=== PATIENT | female | born 1945 | race Caucasian/White ===

== ENCOUNTER 2020-03-04 00:39 | Outpatient (CLI) | payer OTHER, SELFPAY ==
--- NOTE | 2020-03-04 09:11 | DI.US_ITS ---
APPROVED REPORT EXAM: Comprehensive 2D, Doppler, and color-flow Echocardiogram Patient Location: Out-Patient Pressroom Foreman: Imelda Mane RDCS (AE) Indications: Murmur Conclusion Left Ventricle : The left ventricle is normal size. The left ventricular systolic function is normal. The left ventricular ejection fraction is within the normal range. There is normal left ventricular wall thickness. There is normal LV segmental wall motion. LVEF is 58%. There is grade 2 diastolic dys function with evidence of increased left atrial pressure. Right Ventricle : The right ventricle is normal size. The right ventricular systolic function is norm al. The RVSP is 39.8mmHg. Atria : Left atrium is mildly dilated. The right atrium size is normal. Aortic Valve : Aortic valve is calcified. Mild aortic stenosis. Peak aortic valve gradient is 27mmHg. Highest mean aortic valve gradient is 16mmHg. Calculated ELTON by the continuity equation is 1.37cm2. Trace aortic regurgitation. Mitral Valve : Moderate mitral annular calcification. No evidence of mitral valve stenosis. Tricuspid Valve : The tricuspid valve is normal in structure. There is no tricuspid valve stenosis. M ild tricuspid regurgitation. Great Vessels : The aortic root is normal in size. Ascending aorta is not well visualized. IVC is nor mal in size and collapses >50% with inspiration. There is no prior echocardiogram available for comparison. Wall motion Left Ventricle The left ventricle is normal size. The left ventricular systolic function is normal. The left ventric ular ejection fraction is within the normal range. There is normal left ventricular wall thickness. T here is normal LV segmental wall motion. There is grade 2 diastolic dysfunction with evidence of incr eased left atrial pressure. There is no ventricular septal defect visualized. LVEF is 58%. Right Ventricle The right ventricle is normal size. The right ventricular systolic function is normal. The RVSP is 39 .8mmHg. Atria Left atrium is mildly dilated. The right atrium size is normal. The interatrial septum is intact with no evidence for an atrial septal defect. Aortic Valve Aortic valve is calcified. Mild aortic stenosis. Peak aortic valve gradient is 27.7mmHg. Highest mean aortic valve gradient is 16.2mmHg. Calculated ELTON by the continuity equation is 1.37cm2. Trace aorti c regurgitation. Mitral Valve Moderate mitral annular calcification. No evidence of mitral valve stenosis. Mild mitral regurgitatio n. Tricuspid Valve The tricuspid valve is normal in structure. There is no tricuspid valve stenosis. Mild tricuspid regu rgitation. Pulmonic Valve The pulmonary valve is normal in structure. There is no pulmonic valvular stenosis. There is no pulmo rebel valvular regurgitation. Great Vessels The aortic root is normal in size. Ascending aorta is not well visualized. IVC is normal in size and collapses >50% with inspiration. Pericardium There is no pericardial effusion. 2D Dimensions IVSD d PLAX 0.96 cm F: 0.6-1.0 LV Vol A2C d MOD 63.2 mL LVPW d PLAX 0.96 cm F: 0.6 - 1.0 LV Vol A4C d MOD 60.5 mL LVID d PLAX 4.36 cm F: 3.8 - 5.2 LA vol/ BSA A2C s A-L 35.4 mL/m2 Ao Root d 2.37 cm F: 2.7 - 3.3 LA vol/ BSA A4C s A-L 32.3 mL/m2 RA Area A4C 11.60 cm2 LA Vol/ BSA Biplane s A-L 34.1 mL/m2 RA Vol/ BSA A4C s A-L 16.8 mL/m2 LA Area A4C s MOD 18.90 cm2 LVEF (Marsh's) 56.59 % F: 54 - 74 LA Area A2C s MOD 19.66 cm2 LV Volume 50.90 mL F: 46 - 106 LV EF A4C MOD 58.5 % LV Volume Index 32.62 mL/m2 F: 29 - 61 LV EF A2C MOD 58.3 % LV Vol Biplane MOD 62.0 mL LV EF Biplane MOD 56.6 % SV 35.11 mL SV Index 22.50 mL/m2 M-Mode TAPSE 2.45 cm (M/F) >1.7 LV Diastology MV E' medial 0.059 (>0.07 m/s) E/A Ratio 1.1 LV E/e MED 19.35 (<14) MV E Vmax 1.15 (0.4-1.3 m/s) MV E' lateral 0.082 (>0.1 m/s) MV A Vmax 1.05 (0.4-1.3 m/s) LV E/e LAT 14.00 (<14) MV E/A Ratio 1.09 MV E/E' medial 19.37 MV E/E' lateral 14.00 Aortic Valve LVOT Area 2.75 cm2 AoV Area Vmax 1.37 cm2 LVOT Vmax 1.31 m/s AoV Area/ BSA (Vmax) 0.88 cm2/m2 LVOT Mean Krishna. 1.02 m/s ELTON Mean Krishna. 1.46 cm2 LVOT Peak Grad 6.9 mmHg ELTON Mean Krishna. Index 0.93 cm2/m2 LVOT Mean Grad 4.5 mmHg LVOT VTI 0.369 m LVOT Diam s 1.85 cm AoV Vmax 2.63 m/s Velocity Ratio 0.49 AoV Mean Krishna. 1.93 m/s AoV Peak Grad 27.7 mmHg LVOT SV 101.49 mL AoV Mean Grad 16.2 mmHg AoV VTI 0.665 m AoV Area VTI 1.53 cm2 AoV Area/ BSA (VTI) 0.98 cm/m2 Mitral Valve MV DT 247 (160-240 msec) MV PHT 72 msec MV Area PHT 3.08 cm2 Pulmonary Valve PV Vmax 0.84 (0.5-1.5 m/s) RVOT Peak Gr. 1.65 mmHg PV Peak Grad 2.8 mmHg RVOT Mean Gr. 1.20 mmHg PV Mean Grad 2.0 mmHg RVOT VTI 0.168 m PV VTI 0.234 m RVOT Vmax 0.64 m/s Tricuspid Valve TR Peak Grad 36.7 mmHg TR Vmax 3.03 m/s RA Pressure 3.00 mmHg RVSP (TR) 39.8 mmHg
== END 2020-03-04 00:59 ==
PROVIDERS: PCP Nurse Practitioner Adult Health; Visit Provider Nurse Practitioner Adult Health
DX: R01.1 Cardiac murmur, unspecified (principal); I35.2 Nonrheumatic aortic (valve) stenosis with insufficiency; I10 Essential (primary) hypertension; I50.30 Unspecified diastolic (congestive) heart failure
CPT/HCPCS: 93306

== ENCOUNTER 2020-03-04 01:20 | Outpatient (CLI) | payer OTHER, SELFPAY ==
[2020-03-04 09:54] LABS: ALT 26 U/L (14-59); AST 20 U/L (15-37); Albumin 4.3 g/dL (3.4-5.0); Alkaline Phosphatase 55 U/L (46-116); Anion Gap 7.6 mmol/L (3-11); BUN 19 mg/dL (7-18); Bilirubin, Total 0.7 mg/dL (0.2-1.0); CO2 30.4 mmol/L (21.0-32.0); CREATININE 0.95 mg/dL (0.55-1.02); Calcium 9.7 mg/dL (8.5-10.1); Calculated LDL 41 mg/dL (<100); Chloride 106 mmol/L (98-107); Cholesterol 131 mg/dL (<200); Estimated GFR 57.82 (mL/min/1.73m2); Glucose 107 mg/dL (74-106); HDL Cholesterol 47 mg/dL (40-60); Potassium 3.8 mmol/L (3.5-5.1); Sodium 144 mmol/L (136-145); Total Protein 6.8 g/dL (6.4-8.2); Triglyceride 215 mg/dL (<150)
== END 2020-03-04 01:40 ==
PROVIDERS: PCP Nurse Practitioner Adult Health; Visit Provider Nurse Practitioner Adult Health
DX: E78.5 Hyperlipidemia, unspecified (principal); I10 Essential (primary) hypertension; N18.3 Chronic kidney disease, stage 3 (moderate)
CPT/HCPCS: 36415; 80053; 80061

== ENCOUNTER 2020-05-06 11:33 | Emergency (ER) | payer OTHER, SELFPAY ==
[2020-05-06] VITALS (31 sets, daily range): BP systolic 83–148; BP diastolic 38–111; PULSE 56–66; RESP 15–20; TEMP 36.5; O2SAT 92–97
--- NOTE | 2020-05-06 11:30 | RT.EKG_ITS ---
APPROVED REPORT Exam: Resting ECG Patient Location: E HR:62 bpm ECG Measurements Heart Rate 62 AXIS TN 159 P 9 QRSd 93 QRS 36 QT 450 T 48 QTc 457 Conclusion Sinus rhythm...normal P axis, V-rate 60- 99 Inferior infarct, old...Q >35mS, II III aVF
[2020-05-06] MEDS: Normal Saline 1,000 ML 125 ML IV (12:00)
[2020-05-06 12:12] LABS: Abs Immature Grans 0.04 10^3/uL (0.0-0.06); Absolute Basophil Count 0.05 10^3/uL (0.0-0.2); Absolute Eosinophil Count 0.37 10^3/uL (0.0-0.7); Absolute Lymphocyte Count 2.11 10^3/uL (1.2-3.4); Absolute Monocyte Count 0.86 10^3/uL (0.1-0.8); Absolute Neutrophil Count 5.24 10^3/uL (1.2-6.7); Basophils % 0.6; Eosinophils % 4.3; HCT 39.9 % (36.0-46.0); HGB 13.8 g/dL (11.2-15.7); Immature Grans % 0.5; Lymphocytes % 24.3; MCH 31.5 pg (27.0-33.0); MCHC 34.6 % (32.0-36.0); MCV 91.1 fL (80-95); MPV 10.8 fL (8.0-11.0); Monocytes % 9.9; Neutrophils % 60.4; Nucleated RBC 0 %; Platelet Count 197 10^3/uL (130-400); RBC 4.38 10^6/uL (3.93-5.22); RDW 11.9 % (11.7-14.6); RDW-SD 39.4 fL; WBC 8.67 10^3/uL (4.4-10.8)
--- NOTE | 2020-05-06 12:22 | DI.CT_ITS ---
EXAM: CT HEAD WO CLINICAL HISTORY: Right-sided weakness, dizziness, history of CVA TECHNIQUE: COMPARISON: No exams were available for comparison FINDINGS: Note is made of hyperostosis frontalis interna. 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 There is no evidence of acute intracranial hemorrhage, mass effect, or midline shift. The orbital and temporal bone structures appear intact. Visualized paranasal sinuses mastoid air cells appear c lear. IMPRESSION: No evidence of acute intracranial process. RADIATION DOSE DELIVERED: 681.86mGy.cm Total DLP
[2020-05-06 12:26] LABS: Prothrombin Time 10.5 sec (9.3-11.0)
[2020-05-06 12:30] LABS: ALT 25 U/L (14-59); AST 18 U/L (15-37); Albumin 4.2 g/dL (3.4-5.0); Alkaline Phosphatase 60 U/L (46-116); BUN 15 mg/dL (7-18); Bilirubin, Total 0.9 mg/dL (0.2-1.0); CREATININE 0.79 mg/dL (0.55-1.02); Calcium 9.6 mg/dL (8.5-10.1); Chloride 108 mmol/L (98-107); Glucose 150 mg/dL (74-106); Magnesium 1.7 mg/dL (1.8-2.4); Potassium 3.6 mmol/L (3.5-5.1); Sodium 142 mmol/L (136-145); Total Protein 6.9 g/dL (6.4-8.2)
[2020-05-06 12:33] LABS: Troponin I < 0.05 ng/mL (<0.06)
--- NOTE | 2020-05-06 12:45 | DI.RAD_ITS ---
EXAM: XR CHEST 2V PA LATERAL CLINICAL HISTORY: Right-sided weakness, dizzy TECHNIQUE: 2D digital imaging was performed. COMPARISON: No exams were available for comparison FINDINGS: The heart is not enlarged. The lungs are clear and well expanded. No pleural effusion seen. Mediastin al contours appear intact. IMPRESSION: Normal chest RADIATION DOSE DELIVERED: Total DLP
--- NOTE | 2020-05-06 12:48 | W.ED.GENAD ---
Discharge Plan Disposition Patient Disposition: HOME Condition: Stable Discharge Details Chief Complaint: CVA/TIA Clinical Impression: UTI (urinary tract infection), Complaints of weakness of lower extremity Primary Care Provider: Brina Faustin ED Provider: Umang Arredondo Home Meds and New Rx's Prescriptions: New cephalexin [Keflex] 500 mg capsule 500 mg PO BID Qty: 14 RF: 0 Continued atenolol 50 mg tablet 50 mg PO QHS Qty: 90 RF: 3 losartan 50 mg tablet 50 mg PO DAILY Qty: 90 RF: 3 famotidine 20 mg tablet 20 mg PO DAILY RF: 0 amlodipine 10 mg tablet 10 mg PO .daily at bedtime Qty: 90 RF: 3 atorvastatin 40 mg tablet 40 mg PO QPM Qty: 90 RF: 3 amitriptyline 10 mg tablet 10 mg PO QHS Qty: 90 RF: 3 aspirin [Adult Aspirin Regimen] 81 mg tablet,delayed release (DR/EC) 81 mg PO DAILY RF: 0 hydrochlorothiazide 12.5 mg capsule 12.5 mg PO DAILY RF: 0 coenzyme Q10 10 mg capsule 10 mg PO DAILY RF: 0 Calmme Tablet PO RF: 0 montelukast 10 mg tablet 10 mg PO DAILY Qty: 90 RF: 3 fluoxetine [Prozac] 40 mg capsule 40 mg PO DAILY Qty: 90 RF: 3 sumatriptan succinate [Imitrex] 50 mg tablet 50 mg PO DAILY PRN (Reason: migraine headache) Qty: 18 RF: 4 clopidogrel 75 mg tablet 75 mg PO DAILY Qty: 90 RF: 3 Discharge Instructions Instructions: Urinary Tract Infection in Women (ED), Weakness (ED) Additional Instructions: Work-up in the ER reveals urinary tract infection. Take Keflex as directed. Plenty fluids avoid dehydration. At this time your CT imaging did not reveal acute stroke as we discussed MRI is more sensitive. At this time we discussed potential for admission, declined. I believe this to be perfectly reasonable however please watch for new or worsening symptoms and return to the ER for any concerns. I strongly recommend reaching out your primary care provider later today or tomorrow for prompt outpatient reevaluation. Outpatient MRI very well may be indicated if symptoms persist Discharge Data Discharge Date/Time-TO BE ENTERED AT DEPARTURE: 05/06/20 16:16 Medical Decision Making This is a 74-year-old female with a significant past medical history, currently taking Plavix, history of CVA. Question of worsening speech per the sending triage nurse but both patient and family do not feel as though this is accurate. Patient is simply not felt well for a couple of days and reports increased right leg weakness and some paresthesias. She reports that that weakness has resolved and the paresthesias are only occasional. She denies any bowel or bladder changes, paresthesias to the groin, or back pain. Given her age and multiple abilities I do believe initiating a cardiac work-up is reasonable, will obtain a head CT once our code black has completed. Luckily our code black only lasted for approximately 45 minutes after arrival, CT obtained. Outside of her baseline known weakness on her right side status post CVA, I do not appreciate any acute neurologic deficit. She appears well, nontoxic. Heart rate in the 60s, she is afebrile. Work-up reveals a white count of 8.67 hemoglobin 13.8 hematocrit 39.9 platelet count 197. INR 1.0. Sodium 142 potassium 3.6 creatinine 0.79 with a GFR greater than 60. Glucose 150. Calcium 9.6 mag 1.7. LFTs unremarkable. Troponin less than 0.05. Urinalysis reveals trace ketones, positive nitrates, moderate leuk esterase with greater than [address] chest x-ray unremarkable CT read by radiology as negative for acute intracranial process. Discussed initial findings with patient. There is no she does have a urinary tract infection which can certainly make her not feel well, will treat with Keflex. She did receive 1 L IV fluid while she was here. Patient is currently feeling well and comfortable awaiting repeat troponin at 3-hour timeframe. During her ER observation she was able to ambulate steadily using assistive device. Repeat troponin remained less than 0.05. Discussed repeat troponin with patient. We discussed our options. We discussed that although her CT was negative, given her age, comorbidities, etc., MRI could be used for further evaluation. Unfortunately nonemergent MRI is difficult to get from the ER setting that we could talk about in observation admission if you prefer to help expedite the MRI and she was uncomfortable going home. Patient would prefer to be discharged home. I do believe this to be a reasonable plan. I was able to speak with the patient's daughter, Bonita, regarding her work-up here in the ER, findings of a urinary tract infection, and her mother's desire to be discharged. She to was comfortable with this plan and will be sure to be available for her mother if she may need anything over the next couple of days. She was encouraged to return to the ER for new or worsening symptoms, otherwise contact her primary care provider tomorrow for prompt outpatient reevaluation. Medical Records Medical records reviewed: Yes I reviewed the patient's medical records. Imaging Data Radiologic Study: Attestation: I personally reviewed and interpreted this imaging study as follows: Imaging: CT Scan Radiologist's impression: No evidence of acute intracranial process Radiologic Study #2: Attestation: I personally reviewed and interpreted this imaging study as follows: Imaging: X-Ray Radiologist's impression: Chest x-ray unremarkable Lab Data Lab results reviewed: Yes I reviewed the patient's lab results. Lab results narrative: 05/06/20 12:48 Urine - Reflex from Ua Urine Culture - Pending Laboratory Tests Range/Units 05/06/20 05/06/20 05/06/20 12:00 12:00 12:00 WBC (4.4-10.8) 10^3/uL 8.67 RBC (3.93-5.22) 10^6/uL 4.38 Hgb (11.2-15.7) g/dL 13.8 Hct (36.0-46.0) % 39.9 MCV (80-95) fL 91.1 MCH (27.0-33.0) pg 31.5 MCHC (32.0-36.0) % 34.6 RDW (11.7-14.6) % 11.9 Plt Count (130-400) 10^3/uL 197 MPV (8.0-11.0) fL 10.8 Immature Gran % 0.5 Neutrophils % 60.4 Lymphocytes % 24.3 Monocytes % 9.9 Eosinophils % 4.3 Basophils % 0.6 Nucleated RBC % % 0 Absolute Neutrophils (1.2-6.7) 10^3/uL 5.24 Absolute Lymphocytes (1.2-3.4) 10^3/uL 2.11 Absolute Monocytes (0.1-0.8) 10^3/uL 0.86 H Absolute Eosinophils (0.0-0.7) 10^3/uL 0.37 Absolute Basophils (0.0-0.2) 10^3/uL 0.05 PT (9.3-11.0) sec 10.5 INR (0.9-1.1) 1.0 Sodium (136-145) mmol/L 142 Potassium (3.5-5.1) mmol/L 3.6 Chloride (98-107) mmol/L 108 H Carbon Dioxide (21.0-32.0) mmol/L 26.0 Anion Gap (3-11) mmol/L 8.0 BUN (7-18) mg/dL 15 Creatinine (0.55-1.02) mg/dL 0.79 Estimated GFR/1.73 m2 (mL/min/1.73m2) >= 60.00 Glucose (74-106) mg/dL 150 H Calcium (8.5-10.1) mg/dL 9.6 Magnesium (1.8-2.4) mg/dL 1.7 L Total Bilirubin (0.2-1.0) mg/dL 0.9 AST (15-37) U/L 18 ALT (14-59) U/L 25 Alkaline Phosphatase (46-116) U/L 60 Troponin I (<0.06) ng/mL < 0.05 Total Protein (6.4-8.2) g/dL 6.9 Albumin (3.4-5.0) g/dL 4.2 Urine Color (Yellow) Urine Clarity (Clear) Urine pH (5-8) Ur Specific [place] (1.005-1.025) Urine Protein (Negative) mg/dL Urine Ketones (Negative) mg/dL Urine Blood (Negative) Urine Nitrite (Negative) Urine Bilirubin (Negative) Urine Urobilinogen (Up TO 0.2) EU/dL Ur Leukocyte Esterase (Negative) Urine RBC (0-2) HPF Urine WBC (0-5) HPF Ur Epithelial Cells (Negative) HPF Urine Crystals (Negative) HPF Urine Bacteria (Negative) HPF Urine Casts (Negative) LPF Urine Mucus (Negative) Ur Culture Indicated? Urine Glucose (Negative) mg/dL Range/Units 05/06/20 05/06/20 12:48 15:03 WBC (4.4-10.8) 10^3/uL RBC (3.93-5.22) 10^6/uL Hgb (11.2-15.7) g/dL Hct (36.0-46.0) % MCV (80-95) fL MCH (27.0-33.0) pg MCHC (32.0-36.0) % RDW (11.7-14.6) % Plt Count (130-400) 10^3/uL MPV (8.0-11.0) fL Immature Gran % Neutrophils % Lymphocytes % Monocytes % Eosinophils % Basophils % Nucleated RBC % % Absolute Neutrophils (1.2-6.7) 10^3/uL Absolute Lymphocytes (1.2-3.4) 10^3/uL Absolute Monocytes (0.1-0.8) 10^3/uL Absolute Eosinophils (0.0-0.7) 10^3/uL Absolute Basophils (0.0-0.2) 10^3/uL PT (9.3-11.0) sec INR (0.9-1.1) Sodium (136-145) mmol/L Potassium (3.5-5.1) mmol/L Chloride (98-107) mmol/L Carbon Dioxide (21.0-32.0) mmol/L Anion Gap (3-11) mmol/L BUN (7-18) mg/dL Creatinine (0.55-1.02) mg/dL Estimated GFR/1.73 m2 (mL/min/1.73m2) Glucose (74-106) mg/dL Calcium (8.5-10.1) mg/dL Magnesium (1.8-2.4) mg/dL Total Bilirubin (0.2-1.0) mg/dL AST (15-37) U/L ALT (14-59) U/L Alkaline Phosphatase (46-116) U/L Troponin I (<0.06) ng/mL < 0.05 Total Protein (6.4-8.2) g/dL Albumin (3.4-5.0) g/dL Urine Color (Yellow) Yellow Urine Clarity (Clear) Sl cloudy Urine pH (5-8) 7.0 Ur Specific [place] (1.005-1.025) 1.020 Urine Protein (Negative) mg/dL Negative Urine Ketones (Negative) mg/dL Trace H Urine Blood (Negative) Negative Urine Nitrite (Negative) Positive H Urine Bilirubin (Negative) Negative Urine Urobilinogen (Up TO 0.2) EU/dL 0.2 Ur Leukocyte Esterase (Negative) Moderate H Urine RBC (0-2) HPF 10-20 H Urine WBC (0-5) HPF >50 H Ur Epithelial Cells (Negative) HPF Negative Urine Crystals (Negative) HPF Negative Urine Bacteria (Negative) HPF Many Urine Casts (Negative) LPF Negative Urine Mucus (Negative) Negative Ur Culture Indicated? Yes Urine Glucose (Negative) mg/dL Negative ECG Data Attestation: I personally reviewed and interpreted this ECG (s) as follows: Interpretation: EKG reviewed interpreted by Dr. Mills. Please see his official report. Sinus rhythm, ventricular of 62. No STEMI HPI General Date/Time Provider Initiated Documentation: 05/06/20 11:44. Limitations to Documentation: no limitations. Information obtained by: patient and family. HPI Narrative: This is a 74-year-old female with past medical history that includes a cerebral infarct, chronic kidney disease, hypertension, anxiety, mild right-sided deficit status post CVA, hyperlipidemia, IBS, migraines, presenting to the ER today for evaluation. Apparently 2 nights ago she began having some generalized weakness, simply not feeling well, felt as though her right lower extremity had slightly worse weakness than baseline associated with some paresthesias. She initially use the word dizzy but upon further investigation she does not feel ataxic or like the room is spinning, it is more a sensation of just not feeling well and feeling off. Denies any acute numbness or weakness in her face or right upper extremity. Patient tells me that status post her CVA she does have difficulty speaking at times, difficulty with word finding, worse when she talks a lot. Patient reports that this appears to be at baseline and does not believe that this is worse over the past 48 hours. Denies any headache over the past 48 hours, recent illness or trauma. She denies neck pain, chest pain, shortness of breath, abdominal pain, nausea, vomiting, incontinence, change of bowel or bladder function. Patient tells me that she believes that her right leg is back to baseline when speaking about her symptoms 2 nights ago. I was able to speak with the patient's daughter who reports that her mother appears to be at baseline. She feels as though she is speaking normally and does admit that at times she has had difficulty with word finding. She feels as though there is no new neurologic deficit. She felt as though her mother was using her extremities at baseline, ambulating with assistive device as she typically does, did not notice any change in her gait or overall strength. She brought her mother here because of the subjective complaints but she was unable to elicit any change from her baseline. Patient contacted her primary care office today and after speaking with an RN at the office was triaged here. We received a report of a female patient coming in with right sided weakness as well as change in speech. Given this report I clarified with patient and family once again. There is no facial weakness or paralysis. She feels as though her right arm is at baseline status post her CVA. Both patient and family report that her speech is at baseline. Patient does take a baby aspirin daily as well as on Plavix. Given this is a 74-year-old female with a history of CVA, anticoagulated, and triage here for potential change in speech as well as right-sided weakness, I had a very transparent conversation both with patient and family. Unfortunately at this time we are experiencing a code black, our CT machine is expected to be down for approximately 2 hours. After having a thorough conversation using shared decision-making, patient and family are comfortable staying here at our facility understanding that there is CT will likely be delayed. They feel as though she is not having any change in speech, the general feeling of not feeling well along with right leg weakness and/or paresthesias began 2 days ago and they would be well outside any therapeutic window. I do believe this to be a completely reasonable plan but did want to make our limitations known. Related Data Home Medications Medication Instructions Recorded Confirmed aspirin 81 mg tablet,delayed 81 mg PO DAILY 09/14/19 05/06/20 release coenzyme Q10 10 mg capsule 10 mg PO DAILY cap 09/14/19 05/06/20 herbal drugs tab PO 09/14/19 11/19/19 hydrochlorothiazide 12.5 mg capsule 12.5 mg PO DAILY 09/14/19 05/06/20 famotidine 20 mg tablet 20 mg PO DAILY 10/19/19 05/06/20 montelukast 10 mg tablet 10 mg PO DAILY #90 tab 10/25/19 05/06/20 fluoxetine 40 mg capsule 40 mg PO DAILY #90 cap 11/09/19 05/06/20 atenolol 50 mg tablet 50 mg PO QHS #90 tab 11/19/19 05/06/20 losartan 50 mg tablet 50 mg PO DAILY #90 tab 11/19/19 05/06/20 sumatriptan succinate 50 mg tablet 50 mg PO DAILY PRN #18 tab 11/28/19 05/06/20 amlodipine 10 mg tablet 10 mg PO .daily at bedtime #90 tab 02/15/20 05/06/20 amitriptyline 10 mg tablet 10 mg PO QHS #90 tab 03/17/20 05/06/20 atorvastatin 40 mg tablet 40 mg PO QPM #90 tab 03/17/20 05/06/20 clopidogrel 75 mg tablet 75 mg PO DAILY #90 tab 04/22/20 05/06/20 cephalexin [Keflex] 500 mg PO BID #14 cap 05/06/20 Previous Rx's Medication Instructions Recorded montelukast 10 mg tablet 10 mg PO DAILY #90 tab 10/25/19 fluoxetine 40 mg capsule 40 mg PO DAILY #90 cap 11/09/19 atenolol 50 mg tablet 50 mg PO QHS #90 tab 11/19/19 losartan 50 mg tablet 50 mg PO DAILY #90 tab 11/19/19 sumatriptan succinate 50 mg tablet 50 mg PO DAILY PRN #18 tab 11/28/19 amlodipine 10 mg tablet 10 mg PO .daily at bedtime #90 tab 02/15/20 amitriptyline 10 mg tablet 10 mg PO QHS #90 tab 03/17/20 atorvastatin 40 mg tablet 40 mg PO QPM #90 tab 03/17/20 clopidogrel 75 mg tablet 75 mg PO DAILY #90 tab 04/22/20 cephalexin [Keflex] 500 mg PO BID #14 cap 05/06/20 Allergies Allergy/AdvReac Type Severity Reaction Status Date / Time codeine Allergy Verified 05/06/20 11:43 pentazocine [From Talwin] Allergy incoherent Verified 05/06/20 11:43 Sulfa (Sulfonamide Allergy Verified 05/06/20 11:43 Antibiotics) nortriptyline AdvReac Intermediate Elevated BP Verified 05/06/20 11:43 sulfamethoxazole AdvReac Nausea Unverified 05/06/20 11:43 [From Bactrim] trimethoprim [From Bactrim] AdvReac Nausea Unverified 05/06/20 11:43 General Stated Complaint: CVA/TIA JACINDA: 2 Review of Systems Constitutional Constitutional: Denies fatigue, Denies fever(s) and Reports weakness Eyes Eyes: Denies change in vision ENT Ears, Nose, Mouth, and Throat: Denies dizziness and Denies neck pain Cardiovascular Cardiovascular: Denies chest pain and Denies dyspnea Respiratory Respiratory: Denies dyspnea Gastrointestinal Gastrointestinal: Denies abdominal pain, Denies nausea and Denies vomiting Genitourinary Genitourinary: Denies dysuria Musculoskeletal Musculoskeletal: Denies arthralgias, Denies joint swelling, Denies neck pain, Denies numbness, Denies stiffness and Reports tingling Integumentary/Breasts Skin/Breast: Denies rash Neurologic Neurologic: Denies dizziness, Denies numbness, Reports tingling and Reports weakness Endocrine Endocrine: Denies fatigue Hematologic/Lymphatic Hematologic/Lymphatic: Reports easy bruising PFSH Medical History Advanced care planning/counseling discussion (Acute) Cardiac murmur (Chronic) ECHO 02/2020 mild aortic stenosis; repeat ECHO 1 year Cerebral infarction (Chronic) 01/2017 CKD (chronic kidney disease), stage III (Chronic) eGFR ~56 Diverticulitis large intestine w/o perforation or abscess w/o bleeding (Inactive) Do not resuscitate (Chronic) DNR/DNI/DNH (unless comfort needs cannot be met at home); AD completed; COLST completed 11/19/2019 Essential hypertension (Chronic) Generalized anxiety disorder (Acute) Hemiplegia following CVA (cerebrovascular accident) (Chronic) R History of abdominal pain (Acute) NEG HIDA 12/04/2018--no gallbladder disease History of gastric ulcer (Inactive) NSAID related--on Famotidine & avoids NSAIDS (APAP instead) Hyperlipidemia (Acute) Iliotibial band syndrome (Inactive) Impaired gait and mobility (Chronic) s/p CVA; uses Walker Irritable bowel syndrome (Chronic) Imodium PRN Migraine with aura, intractable, without status migrainosus (Chronic) Amitrip 10mg HS stopped migraines immediately (see 03/17/2020 OV note); Imitrex PRN + nightly Nortriptyline effective initially at 10mg with dose increase to 20mg causing elevated BPs so stopped and no worse for migraines Mild intermittent asthma (Acute) Surgical History H/O section (Chronic) 1973, Dr. Christensen H/O: hysterectomy (Chronic) 1983. Dr. Christensen History of appendectomy (Chronic) History of back surgery (Acute) --with fusion History of carpal tunnel release (Acute) S/P excision of lipoma (Acute 09/30/10) right hand Status post excision of lipoma (Acute 09/30/10) Fibrolipoma cervical neck mass, Dr. Pelayo Family History Father Prostate cancer Diabetes Heart disease Hypertension Mother Heart disease Hypertension Social History Smoking/Tobacco Use Status: Never Alcohol Intake: current Alcohol Intake frequency: a few times a month Drug use: Never Substance use type: does not use Adopted: No Caregiver/Support person: No Foster care: No Household members: family Housing: house Number of Children: 2 number of grandchildren: 3 Communication Needs: Corrective Lenses Education Level: vocational Do you need help understanding health information?: Rarely current occupation: Retired Sexually active: No Do you think of yourself as: straight/heterosexual Current gender identity: female Other: 2 daughter; Gege Navarro, agent (daughter who lives nearby) What type of physical activity do you participate in: none Amalia/Nondenominational: Confucianism Special amalia needs: No Seatbelt use: always Working smoke detector in home: Yes Fire extinguisher in home: Yes Carbon monox detector in home: Yes Do you feel safe at home: Yes Do you feel safe in your relationship?: Yes Exam Const General: cooperative, healthy appearing, comfortable and no acute distress Orientation: alert, awake and oriented x3 HENMT Head: normal to inspection, normocephalic and atraumatic Ears: external ears normal, TM's normal bilaterally and EAC's normal General nose exam: external nose normal Face and sinus: normal facial exam Mouth: moist mucous membranes Throat: posterior oropharynx normal Eyes General: appearance normal, both eyes and all related structures Alignment and Position: alignment normal Periorbital: periorbital findings normal Eyelids: eyelids normal Conjunctivae: conjunctivae normal Sclera: sclerae normal Cornea: corneas normal Pupils: PERRL EOM: EOM intact bilaterally Direct ophthalmoscopy: normal light reflex Neck Neck: normal visual inspection, full ROM, no meningeal signs, trachea midline, supple and nontender Resp Effort & Inspection: normal respiratory effort and able to speak in complete sentences Auscultation: clear to auscultation bilaterally Cardio Rate: regular rate Rhythm: regular rhythm GI Inspection: normal to inspection Palpation: soft, no pulsatile masses and nontender Auscultation: normal bowel sounds Back/Spine/Pelvis Back: No back tenderness Skin General skin exam: no rashes or lesions noted Neuro General: patient alert, patient awake, patient oriented x3, moves all extremities and no focal motor deficits Cranial Nerves: CN's II-XI intact bilaterally Cognition: normal cognition Speech: other (Has appropriate conversation, occasionally with word finding difficulties) Gait: gait assisted Motor: no pronator drift, no movement abnormalities noted, no fasciculations, no tremors and other (Right extremities 4 out of 5, left extremities 5 out of 5 strength) Sensory Exam: no sensory deficits noted Coordination: [id number] test normal, [id number] test normal, Does not sway with eyes open and rapid alternating movement UE normal Extrem Right upper extremity: normal to inspection, full ROM and normal capillary refill Left upper extremity: normal to inspection, full ROM and normal capillary refill Right lower extremity: normal to inspection, full ROM and normal capillary refill Left lower extremity: normal to inspection, full ROM and normal capillary refill Other: Patient able to feel palpation to the right leg. Occasionally she reports that it feels slightly different across the anterior and lateral aspect of her right thigh. Psych Appearance: grossly normal Mental Status: mental status grossly normal Course Vital Signs Vital signs: Vital Signs Temperature 36.5 C 05/06/20 11:38 Pulse 66 05/06/20 11:38 Respiratory Rate 05/06/20 11:38 Blood Pressure 148/66 H 05/06/20 11:38 Pulse Oximetry 95 05/06/20 11:38 Temperature 36.5 C 05/06/20 11:38 Temperature Source Skin 05/06/20 11:38 Pulse 62 05/06/20 11:46 Pulse 61 05/06/20 12:10 Respiratory Rate 05/06/20 11:38 Respiratory Effort Non-Labored 05/06/20 12:31 Blood Pressure 116/57 L 05/06/20 11:46 Blood Pressure Mean 70 05/06/20 11:46 Blood Pressure Position Sitting 05/06/20 11:38 Pulse Oximetry 95 05/06/20 12:10 Oxygen Delivery Method Room Air 05/06/20 11:38 Oxygen Flow Rate 0 05/06/20 11:38 Lab/Test Results Lab/Test Results: Laboratory Tests Range/Units 05/06/20 05/06/20 05/06/20 12:00 12:00 12:00 WBC (4.4-10.8) 10^3/uL 8.67 RBC (3.93-5.22) 10^6/uL 4.38 Hgb (11.2-15.7) g/dL 13.8 Hct (36.0-46.0) % 39.9 MCV (80-95) fL 91.1 MCH (27.0-33.0) pg 31.5 MCHC (32.0-36.0) % 34.6 RDW (11.7-14.6) % 11.9 Plt Count (130-400) 10^3/uL 197 MPV (8.0-11.0) fL 10.8 Immature Gran % 0.5 Neutrophils % 60.4 Lymphocytes % 24.3 Monocytes % 9.9 Eosinophils % 4.3 Basophils % 0.6 Nucleated RBC % % 0 Absolute Neutrophils (1.2-6.7) 10^3/uL 5.24 Absolute Lymphocytes (1.2-3.4) 10^3/uL 2.11 Absolute Monocytes (0.1-0.8) 10^3/uL 0.86 H Absolute Eosinophils (0.0-0.7) 10^3/uL 0.37 Absolute Basophils (0.0-0.2) 10^3/uL 0.05 PT (9.3-11.0) sec 10.5 INR (0.9-1.1) 1.0 Sodium (136-145) mmol/L 142 Potassium (3.5-5.1) mmol/L 3.6 Chloride (98-107) mmol/L 108 H Carbon Dioxide (21.0-32.0) mmol/L 26.0 Anion Gap (3-11) mmol/L 8.0 BUN (7-18) mg/dL 15 Creatinine (0.55-1.02) mg/dL 0.79 Estimated GFR/1.73 m2 (mL/min/1.73m2) >= 60.00 Glucose (74-106) mg/dL 150 H Calcium (8.5-10.1) mg/dL 9.6 Magnesium (1.8-2.4) mg/dL 1.7 L Total Bilirubin (0.2-1.0) mg/dL 0.9 AST (15-37) U/L 18 ALT (14-59) U/L 25 Alkaline Phosphatase (46-116) U/L 60 Troponin I (<0.06) ng/mL < 0.05 Total Protein (6.4-8.2) g/dL 6.9 Albumin (3.4-5.0) g/dL 4.2
[2020-05-06 13:04] LABS: Bilirubin Negative (Negative); Blood Negative (Negative); Clarity Sl Cloudy (Clear); Glucose Negative (Negative); Ketones Trace mg/dL (Negative); Leukocyte Esterase Moderate (Negative); Nitrite Positive (Negative); Urobilinogen 0.2 EU/dL (Up TO 0.2)
[2020-05-06 13:14] LABS: Bacteria Many HPF (Negative); C & S Indicated? Yes; Casts Negative LPF (Negative); Crystals Negative HPF (Negative); Epithelial Cells Negative HPF (Negative); Mucus Negative (Negative); WBC >50 HPF (0-5)
[2020-05-06] MEDS: Cephalexin 500 MG CAP PO (13:50)
[2020-05-06] MEDS: Normal Saline Flush 10 ML SYR IVP (14:02)
[2020-05-06] MEDS: Normal Saline 1,000 ML 750 ML IV (14:06)
--- NOTE | 2020-05-06 15:00 | RT.EKG_ITS ---
APPROVED REPORT Exam: Resting ECG Patient Location: E HR:58 bpm ECG Measurements Heart Rate 58 AXIS NE 168 P 10 QRSd 88 QRS 23 QT 479 T 38 QTc 471 Conclusion Sinus bradycardia., narrow qrs, no st elevation
[2020-05-06 15:26] LABS: Troponin I < 0.05 ng/mL (<0.06)
== END 2020-05-06 16:16 | disposition home or self-care (01) ==
PROVIDERS: Emergency Provider Physician Assistant; PCP Nurse Practitioner Adult Health
DX: N39.0 Urinary tract infection, site not specified (principal); B96.20 Unspecified Escherichia coli [E. coli] as the cause of diseases classified elsewhere; M62.81 Muscle weakness (generalized); I12.9 Hypertensive chronic kidney disease with stage 1 through stage 4 chronic kidney disease, or unspecified chronic kidney disease; N18.3 Chronic kidney disease, stage 3 (moderate)
CPT/HCPCS: 36416; 80053; 82962; 87077; 93005; 96360; 99285; 70450; 71046; 81003; 81015; 83735; 84484; 85025; 85610; 87086; 87186; 93010; 99284

== ENCOUNTER → 2020-06-30 13:35 | Outpatient (BNVA) | payer OTHER, SELFPAY | PROVIDERS: PCP Nurse Practitioner Adult Health; Referring Provider Nurse Practitioner Adult Health; Visit Provider Psychiatry & Neurology Neurology | DX: M54.17 Radiculopathy, lumbosacral region (principal); R29.898 Other symptoms and signs involving the musculoskeletal system; I63.9 Cerebral infarction, unspecified; R47.01 Aphasia; G47.00 Insomnia, unspecified; I12.9 Hypertensive chronic kidney disease with stage 1 through stage 4 chronic kidney disease, or unspecified chronic kidney disease; N18.31 Chronic kidney disease, stage 3a | CPT/HCPCS: 99205; 99215 ==

== ENCOUNTER → 2020-09-01 13:10 | Outpatient (BNVA) | payer OTHER, SELFPAY | PROVIDERS: PCP Nurse Practitioner Adult Health; Referring Provider Nurse Practitioner Adult Health; Visit Provider Psychiatry & Neurology Neurology | DX: R41.3 Other amnesia (principal); R29.898 Other symptoms and signs involving the musculoskeletal system; M54.17 Radiculopathy, lumbosacral region; I63.9 Cerebral infarction, unspecified; R47.01 Aphasia; G47.00 Insomnia, unspecified | CPT/HCPCS: 99358 ==

== ENCOUNTER 2021-01-28 15:36 | Outpatient (CLI) | payer MEDICARE, SELFPAY ==
--- NOTE | 2021-01-28 15:30 | RT.EKG_ITS ---
APPROVED REPORT Exam: Resting ECG Reason for Exam: chest pressure Patient Location: O HR:62 bpm ECG Measurements Heart Rate 62 AXIS AR 158 P 0 QRSd 89 QRS 33 QT 480 T 52 QTc 480 Conclusion Sinus rhythm...normal P axis, V-rate 60- 99 Atrial premature complex...SV complex w/ short R-R interval
== END 2021-01-28 15:37 | disposition home or self-care (01) ==
LOC: DI.KIM 15:36
PROVIDERS: PCP Nurse Practitioner Adult Health; Visit Provider Nurse Practitioner Adult Health
DX: R07.89 Other chest pain (principal)
CPT/HCPCS: 93010

== ENCOUNTER → 2021-02-03 09:12 | Outpatient (BNVA) | payer MEDICARE, SELFPAY | PROVIDERS: PCP Nurse Practitioner Adult Health; Visit Provider Psychiatry & Neurology Neurology | DX: R51.9 Headache, unspecified (principal); G47.00 Insomnia, unspecified; I63.9 Cerebral infarction, unspecified; R47.01 Aphasia; R29.898 Other symptoms and signs involving the musculoskeletal system; M54.17 Radiculopathy, lumbosacral region; R41.3 Other amnesia; Z87.19 Personal history of other diseases of the digestive system | CPT/HCPCS: 99215 ==

== ENCOUNTER 2021-03-18 02:02 | Outpatient (CLI) | payer MEDICARE, SELFPAY ==
--- NOTE | 2021-03-18 08:00 | DI.RAD_ITS ---
Exam(s) XR CERVICAL SPINE COMP 4-5V EXAM: XR CERVICAL SPINE COMP 4-5V CLINICAL HISTORY: r/o bony fx; other abnormality,c spine crepitus,s/p fall,[id number]. TECHNIQUE: 2D digital imaging was performed. COMPARISON: No exams were available for comparison FINDINGS: The odontoid is intact lateral masses are well aligned. Moderate to severe degenerative changes are present throughout the cervical spine. The findings do result in moderate right neural foraminal evangelist nosis at C4-C5 and moderate left neural foraminal stenosis at C3-4 through C6-C7. No acute fracture or subluxation. Facet arthropathy is present throughout the cervical spine. Prevertebral soft tissu es are unremarkable. IMPRESSION: 1. No acute fracture or subluxation. 2. Moderately severe degenerative changes in the cervical spine. DATA REPOSITORY: RADIATION DOSE DELIVERED:
--- NOTE | 2021-03-18 08:00 | DI.RAD_ITS ---
Exam(s) XR THORACIC SPINE COMPLETE EXAM: XR THORACIC SPINE COMPLETE CLINICAL HISTORY: r/o bony fx; compression fx,s/p fall,pain, m54.6. TECHNIQUE: 2D digital imaging was performed. COMPARISON: CR XR CHEST 2V PA LATERAL from 05/06/2020 CR XR CHEST 2V PA LATERAL from 05/06/2020 FINDINGS: There is a stable mild scoliotic curvature of the thoracolumbar spine. There is a compression fractu re of the T8 vertebral body. There is mild loss of the height of the vertebral body anteriorly. Thi s was not present on the chest x-ray from 05/06/2020. No other compression fracture deformities are s een. Mild degenerative changes are present throughout the thoracic spine. The visualized lungs are clear. Atherosclerosis. Calcification of the mitral valve is noted. IMPRESSION: Mild compression fracture of the T8 vertebral body, new since the most recent chest x-ray of 0. DATA REPOSITORY: RADIATION DOSE DELIVERED:
--- NOTE | 2021-03-18 11:07 | DI.RAD_ITS ---
Exam(s) XR RIBS LT W PA LAT CHEST EXAM: XR RIBS LT W PA LAT CHEST CLINICAL HISTORY: Posterior LEFT T7 or T8 rib fracture?,s/p fall,[id number] TECHNIQUE: 2D digital imaging was performed. COMPARISON: No exams were available for comparison FINDINGS: MEDIASTINUM: Normal. HEART: Normal. PULMONARY VASCULATURE: Normal. LUNGS: Clear. PLEURAL SPACE: No pleural effusion or pneumothorax. BONE:There is a mild T8 compression fracture of indeterminate age. It was not present on the prior e xamination from 05/06/2020. LEFT RIBS: Normal. OTHER FINDINGS:Normal. IMPRESSION: 1. No acute pulmonary findings. 2. Mild T8 vertebral body compression fracture of indeterminate age. 3. Unremarkable left ribs. DATA REPOSITORY: RADIATION DOSE DELIVERED:
--- NOTE | 2021-03-18 11:18 | DI.RAD_ITS ---
Exam(s) XR LUMBAR SPINE COMPLETE EXAM: XR LUMBAR SPINE COMPLETE CLINICAL HISTORY: chronic pain s/p surgery; reassess,s/p fall,m54.5. TECHNIQUE: 2D digital imaging was performed. COMPARISON: No exams were available for comparison FINDINGS: Posterior spinal surgery is seen from L4 through S1. The bones are osteopenic. Degenerative changes are seen from L1-2 through L4-L5 with disc space narrowings, subchondral sclerosis and vacuum discs. The inferior aspect of the L5 vertebral body is not well visualized. The cortex is indistinct. A fracture cannot be excluded in this area. Visualization of this area may be compromised due to the o steopenia and the body habitus. No other fracture or dislocation is suggested. Surgical clips are s een in the pelvis. Atherosclerosis is present. IMPRESSION: Poorly visualized inferior aspect of the L5 vertebral body. Fracture or infection should be consider ed. A CT scan should be considered for further evaluation. DATA REPOSITORY: RADIATION DOSE DELIVERED:
[2021-03-18 11:50] LABS: ALT 28 U/L (14-59); AST 18 U/L (15-37); Albumin 4.2 g/dL (3.4-5.0); Alkaline Phosphatase 132 U/L (46-116); BUN 18 mg/dL (7-18); Bilirubin, Total 0.8 mg/dL (0.2-1.0); Calcium 9.8 mg/dL (8.5-10.1); Calculated LDL 54 mg/dL (<100); Chloride 107 mmol/L (98-107); Cholesterol 137 mg/dL (<200); Estimated GFR 54.35 (mL/min/1.73m2); Glucose 88 mg/dL (74-106); HDL Cholesterol 47 mg/dL (40-60); Potassium 4.1 mmol/L (3.5-5.1); Sodium 146 mmol/L (136-145); Total Protein 6.5 g/dL (6.4-8.2); Triglyceride 180 mg/dL (<150); Vitamin B12 1012 pg/mL (193-986)
== END 2021-03-18 02:03 | disposition home or self-care (01) ==
LOC: LBO 02:02
PROVIDERS: PCP Nurse Practitioner Adult Health; Visit Provider Nurse Practitioner Adult Health
DX: R51.9 Headache, unspecified (principal); R42 Dizziness and giddiness; N18.30 Chronic kidney disease, stage 3 unspecified; E78.5 Hyperlipidemia, unspecified; I10 Essential (primary) hypertension; H53.9 Unspecified visual disturbance; M54.5 Low back pain; G89.29 Other chronic pain; M48.54XA Collapsed vertebra, not elsewhere classified, thoracic region, initial encounter for fracture; M54.6 Pain in thoracic spine; M54.2 Cervicalgia; M47.812 Spondylosis without myelopathy or radiculopathy, cervical region; W19.XXXA Unspecified fall, initial encounter
CPT/HCPCS: 36415; 80053; 80061; 71046; 71100; 72050; 72072; 72110; 82607

== ENCOUNTER → 2021-03-31 13:09 | Outpatient (BNVA) | payer MEDICARE, SELFPAY | PROVIDERS: PCP Nurse Practitioner Adult Health; Visit Provider Psychiatry & Neurology Neurology | DX: R51.9 Headache, unspecified (principal); G47.00 Insomnia, unspecified; I63.9 Cerebral infarction, unspecified; R47.01 Aphasia; R29.898 Other symptoms and signs involving the musculoskeletal system; M54.17 Radiculopathy, lumbosacral region; R41.3 Other amnesia; Z87.19 Personal history of other diseases of the digestive system; E78.5 Hyperlipidemia, unspecified; I12.9 Hypertensive chronic kidney disease with stage 1 through stage 4 chronic kidney disease, or unspecified chronic kidney disease; N18.9 Chronic kidney disease, unspecified; F41.1 Generalized anxiety disorder | CPT/HCPCS: 99214 ==

== ENCOUNTER 2021-07-16 02:24 | Outpatient (CLI) | payer MEDICARE, SELFPAY ==
--- NOTE | 2021-07-16 | DI.DEXA_ITS ---
Exam(s) XR DEXA BONE DENSITY W/WO LALO EXAM: XR DEXA BONE DENSITY W/WO LALO CLINICAL HISTORY: ACUTE T 8 COMP FX, FELL,OSTEOPENIA,M85.80,S22.060A TECHNIQUE: Routine DEXA evaluation of the lumbar spine, hip, or forearm. COMPARISON: CR XR LUMBAR SPINE COMPLETE from 03/18/2021 FINDINGS: Performed on a Hologic unit. Lateral image: No compression fracture evident. Lumbar Spine total T-score: This was divided at L1 and L2 levels with L3 and below not performed james use of posterior fusion hardware at L4 and L5 level which projected slightly up into the L3 level. T -score at L1 is -0.4. T-score at L2 level is 0.3. Average of these 2 is 0.2 Hip total T-score:-1.8 Independent reading at the level of the femoral neck yields at T-score of -1.5. Forearm total T-score: -2.8 IMPRESSION: Bone mineral density measures in the osteopenia range. Fracture risk is moderate. Note: Any spine fracture indicates 5x risk for subsequent spine fracture and 2x risk for subsequent h ip fracture. World Health Organization criteria for BMD interpretation classify patients: Normal...... T- Score at or above -1.0 Osteopenic... T- Score between -1.0 and -2.5 Osteoporosis... T-Score at or below -2.5
== END 2021-07-16 02:44 ==
PROVIDERS: PCP Nurse Practitioner Adult Health; Visit Provider Nurse Practitioner Adult Health
DX: M85.88 Other specified disorders of bone density and structure, other site (principal); S22.060D Wedge compression fracture of T7-T8 vertebra, subsequent encounter for fracture with routine healing
CPT/HCPCS: 77080

== ENCOUNTER 2021-09-23 01:44 | Outpatient (RCR) | payer MEDICARE, SELFPAY ==
[2021-09-23] MEDS: Normal Saline Flush 10 ML SYR IVP (13:35)
== END 2021-10-12 23:59 | disposition home or self-care (01) ==
LOC: INF 01:44
PROVIDERS: PCP Nurse Practitioner Adult Health; Visit Provider Nurse Practitioner Adult Health
DX: M81.0 Age-related osteoporosis without current pathological fracture (principal)
CPT/HCPCS: 96365; J3489

== ENCOUNTER → 2021-09-29 10:59 | Outpatient (BNVA) | payer MEDICARE, SELFPAY | PROVIDERS: PCP Nurse Practitioner Adult Health; Visit Provider Psychiatry & Neurology Neurology | DX: R29.898 Other symptoms and signs involving the musculoskeletal system (principal); G47.00 Insomnia, unspecified; I63.9 Cerebral infarction, unspecified; R47.01 Aphasia; M54.17 Radiculopathy, lumbosacral region; R41.3 Other amnesia | CPT/HCPCS: 99214 ==

== ENCOUNTER 2021-11-23 13:51 | Outpatient (REF) | payer MEDICARE, SELFPAY ==
[2021-11-23 19:44] LABS: Abs Immature Grans 0.03 10^3/uL (0.0-0.06); Absolute Basophil Count 0.04 10^3/uL (0.0-0.2); Absolute Eosinophil Count 0.39 10^3/uL (0.0-0.7); Absolute Lymphocyte Count 1.96 10^3/uL (1.2-3.4); Absolute Monocyte Count 0.88 10^3/uL (0.1-0.8); Absolute Neutrophil Count 7.09 10^3/uL (1.2-6.7); Basophils % 0.4; Eosinophils % 3.8; HCT 37.5 % (36.0-46.0); HGB 12.5 g/dL (11.2-15.7); Immature Grans % 0.3; Lymphocytes % 18.9; MCHC 33.3 % (32.0-36.0); MCV 90.1 fL (80-95); MPV 11.1 fL (8.0-11.0); Monocytes % 8.5; Neutrophils % 68.1; Nucleated RBC 0 %; Platelet Count 241 10^3/uL (130-400); RBC 4.16 10^6/uL (3.93-5.22); RDW 13.2 % (11.7-14.6); RDW-SD 43.6 fL; WBC 10.39 10^3/uL (4.4-10.8)
[2021-11-23 20:18] LABS: Vitamin D 25 Total 16.8 ng/mL (30-100)
[2021-11-23 20:24] LABS: ALT 26 U/L (14-59); AST 23 U/L (15-37); Albumin 4.3 g/dL (3.4-5.0); Alkaline Phosphatase 67 U/L (46-116); Anion Gap 9.4 mmol/L (3-11); BUN 18 mg/dL (7-18); Bilirubin, Total 0.7 mg/dL (0.2-1.0); CO2 26.6 mmol/L (21.0-32.0); Calcium 9.6 mg/dL (8.5-10.1); Calculated LDL 40 mg/dL (<100); Chloride 106 mmol/L (98-107); Cholesterol 127 mg/dL (<200); Glucose 91 mg/dL (74-106); HDL Cholesterol 45 mg/dL (40-60); Potassium 4.2 mmol/L (3.5-5.1); Sodium 142 mmol/L (136-145); TSH (W/Ref FT4) 0.84 uIU/mL (0.36-3.74); Total Protein 7.1 g/dL (6.4-8.2); Triglyceride 214 mg/dL (<150); Vitamin B12 790 pg/mL (193-986)
[2021-11-23 21:34] LABS: C-Reactive Protein < 0.05 mg/dL (0.0-0.3)
== END 2021-11-23 13:52 | disposition home or self-care (01) ==
LOC: LBN 13:51
PROVIDERS: PCP Nurse Practitioner Adult Health; Visit Provider Nurse Practitioner Adult Health
DX: R01.1 Cardiac murmur, unspecified (principal); R53.83 Other fatigue; M80.80XD Other osteoporosis with current pathological fracture, unspecified site, subsequent encounter for fracture with routine healing; E78.5 Hyperlipidemia, unspecified
CPT/HCPCS: 80053; 80061; 82306; 82607; 84443; 85025; 86140

== ENCOUNTER → 2022-01-07 02:15 | Outpatient (CLI) | payer MEDICARE, SELFPAY ==
--- NOTE | 2022-01-07 13:33 | DI.US_ITS ---
APPROVED REPORT EXAM: Comprehensive 2D, Doppler, and color-flow Echocardiogram Patient Location: Out-Patient Switch Maker: Imelda Mane RDCS (AE) Indications: Aortic stenosis, Dizziness, presyncope, Murmur Other Information Study Quality: Fair. Technically limited study due to body habitus. Conclusion Normal left ventricular wall thickness and chamber size. Estimated ejection fraction is 55 to 60%. Wall motion is normal normal right ventricular size and systolic function Left atrium is moderately dilated. The right atrium is normal in size The aortic valve is calcified. Number of aortic valve leaflets could not be accurately determined There is mild aortic stenosis. Peak gradient is 34, mean 19 mmHg. Calculated aortic valve area is 1 .38 cm??. There is trace aortic regurgitation Moderate mitral annular calcification with mild to moderate mitral regurgitation Normal tricuspid valve with mild to moderate regurgitation. Estimated right ventricular systolic pre ssure is 37 mmHg Wall motion Left Ventricle The left ventricle is normal size. The left ventricular systolic function is normal. The left ventric ular ejection fraction is within the normal range. There is normal left ventricular wall thickness. T here is normal LV segmental wall motion. There is no ventricular septal defect visualized. LVEF is 55 %. Right Ventricle The right ventricle is normal size. The right ventricular systolic function is normal. The RVSP is 36 .6mmHg. Atria Left atrium is moderately dilated. The right atrium size is normal. The interatrial septum is intact with no evidence for an atrial septal defect. Aortic Valve Aortic valve is calcified. Number of aortic valve leaflets could not be assessed. Mild aortic stenosi s. Peak aortic valve gradient is 33.8mmHg. Highest mean aortic valve gradient is 19.5mmHg. Calculated ELTON by the continuity equation is 1.38cm2. Trace aortic regurgitation. Mitral Valve Moderate mitral annular calcification. No evidence of mitral valve stenosis. Mild to moderate mitral regurgitation. Tricuspid Valve The tricuspid valve is normal in structure. There is no tricuspid valve stenosis. Mild to moderate tr icuspid regurgitation. Pulmonic Valve Pulmonic valve is not well visualized. There is no pulmonic valvular stenosis. There is no pulmonic v alvular regurgitation. Great Vessels The aortic root is normal in size. The ascending aorta is normal in size. Aortic arch is not well vis ualized. IVC is normal in size and collapses >50% with inspiration. Pericardium There is no pericardial effusion. 2D Dimensions IVSD d PLAX 1.04 cm F: 0.6-1.0 LV Vol A2C d MOD 73.2 mL LVPW d PLAX 1.02 cm F: 0.6 - 1.0 LV Vol A4C d MOD 70.9 mL LVID d PLAX 4.07 cm F: 3.8 - 5.2 LA vol/ BSA A2C s A-L 40.3 mL/m2 LVDs 2.90 cm F: 2.2 - 3.5 LA vol/ BSA A4C s A-L 46.9 mL/m2 Ao Root d 3.13 cm F: 2.7 - 3.3 LA Vol/ BSA Biplane s A-L 47.1 mL/m2 RA Area A4C 14.51 cm2 LA Area A4C s MOD 23.47 cm2 RA Vol/ BSA A4C s A-L 22.9 mL/m2 LA Area A2C s MOD 20.11 cm2 Ao Asc Diam d 3.03 cm F: 2.3 - 3.1 LV EF A4C MOD 55.1 % LV EF Teichholz 55.1 % LV EF A2C MOD 56.5 % LVEF (Marsh's) 54.72 % F: 54 - 74 LV EF Biplane MOD 54.7 % LV Volume 59.57 mL F: 46 - 106 SV 39.48 mL LV Volume Index 38.93 mL/m2 F: 29 - 61 SV Index 25.71 mL/m2 LV Vol Biplane MOD 72.2 mL FS 28.20 % M-Mode TAPSE 2.10 cm (M/F) >1.7 LV Diastology MV E' medial 0.068 (>0.07 m/s) E/A Ratio 1.6 LV E/e MED 18.45 (<14) MV E Vmax 1.26 (0.4-1.3 m/s) MV E' lateral 0.078 (>0.1 m/s) MV A Vmax 0.80 (0.4-1.3 m/s) LV E/e LAT 16.15 (<14) MV E/A Ratio 1.50 MV E/E' medial 18.47 MV E/E' lateral 16.16 Aortic Valve LVOT Area 3.09 cm2 AoV Area Vmax 1.38 cm2 LVOT Vmax 1.30 m/s AoV Area/ BSA (Vmax) 0.90 cm2/m2 LVOT Mean Krishna. 0.88 m/s ELTON Mean Krishna. 1.29 cm2 LVOT Peak Grad 6.8 mmHg ELTON Mean Krishna. Index 0.84 cm2/m2 LVOT Mean Grad 3.6 mmHg AR DT 1696 msec LVOT VTI 0.350 m AR PHT 492 msec LVOT Diam s 1.95 cm AoV Vmax 2.91 m/s Velocity Ratio 0.44 AoV Mean Krishna. 2.11 m/s AoV Peak Grad 33.8 mmHg LVOT SV 108.07 mL AoV Mean Grad 19.5 mmHg AoV VTI 0.721 m AoV Area VTI 1.50 cm2 AoV Area/ BSA (VTI) 0.98 cm/m2 Mitral Valve MV DT 207 (160-240 msec) MV PHT 60 msec MV Area PHT 3.66 cm2 MV VTI 0.542 m MV Area VTI 1.99 (4.0-6.0 cm2) Pulmonary Valve PV Vmax 0.92 (0.5-1.5 m/s) RVOT Peak Gr. 1.77 mmHg PV Peak Grad 3.4 mmHg RVOT Mean Gr. 1.10 mmHg PV Mean Grad 2.3 mmHg RVOT VTI 0.151 m PV VTI 0.266 m RVOT Vmax 0.66 m/s Tricuspid Valve TR Peak Grad 33.5 mmHg TR Vmax 2.90 m/s RA Pressure 3.00 mmHg RVSP (TR) 36.6 mmHg
== END ==
PROVIDERS: PCP Nurse Practitioner Adult Health; Visit Provider Nurse Practitioner Adult Health
DX: I35.0 Nonrheumatic aortic (valve) stenosis (principal); R01.1 Cardiac murmur, unspecified
CPT/HCPCS: 93306

== ENCOUNTER → 2022-01-11 13:13 | Outpatient (BNVA) | payer MEDICARE, SELFPAY | PROVIDERS: PCP Nurse Practitioner Adult Health; Visit Provider Psychiatry & Neurology Neurology | DX: I69.351 Hemiplegia and hemiparesis following cerebral infarction affecting right dominant side (principal); I69.320 Aphasia following cerebral infarction; M54.17 Radiculopathy, lumbosacral region; G89.29 Other chronic pain; F41.9 Anxiety disorder, unspecified; R41.3 Other amnesia; I12.9 Hypertensive chronic kidney disease with stage 1 through stage 4 chronic kidney disease, or unspecified chronic kidney disease; N18.9 Chronic kidney disease, unspecified; R51.9 Headache, unspecified; G47.00 Insomnia, unspecified | CPT/HCPCS: 99214 ==

== ENCOUNTER → 2022-04-27 14:21 | Outpatient (BNVA) | payer MEDICARE, SELFPAY | PROVIDERS: PCP Nurse Practitioner Adult Health; Referring Provider Nurse Practitioner Adult Health; Visit Provider Psychiatry & Neurology Neurology | DX: I69.320 Aphasia following cerebral infarction (principal); Z79.02 Long term (current) use of antithrombotics/antiplatelets; R53.83 Other fatigue; I12.9 Hypertensive chronic kidney disease with stage 1 through stage 4 chronic kidney disease, or unspecified chronic kidney disease; N18.9 Chronic kidney disease, unspecified | CPT/HCPCS: 99214 ==

== ENCOUNTER → 2022-07-27 09:17 | Outpatient (BNVA) | payer MEDICARE, SELFPAY | PROVIDERS: PCP Nurse Practitioner Adult Health; Referring Provider Nurse Practitioner Adult Health; Visit Provider Psychiatry & Neurology Neurology | DX: I69.320 Aphasia following cerebral infarction (principal); Z79.02 Long term (current) use of antithrombotics/antiplatelets; F41.9 Anxiety disorder, unspecified; I12.9 Hypertensive chronic kidney disease with stage 1 through stage 4 chronic kidney disease, or unspecified chronic kidney disease; N18.9 Chronic kidney disease, unspecified; R41.3 Other amnesia | CPT/HCPCS: 99214 ==

== ENCOUNTER 2022-08-17 03:15 | Outpatient (CLI) | payer MEDICARE, SELFPAY ==
[2022-08-17 13:39] LABS: Anion Gap 8.5 mmol/L (3-11); BUN 20 mg/dL (7-18); CO2 28.5 mmol/L (21.0-32.0); CREATININE 0.9 mg/dL (0.55-1.02); Calcium 9.6 mg/dL (8.5-10.1); Chloride 104 mmol/L (98-107); Estimated GFR 66.67 (mL/min/1.73m2); Glucose 125 mg/dL (74-106); Potassium 4.1 mmol/L (3.5-5.1); Sodium 141 mmol/L (136-145)
[2022-08-17 14:33] LABS: Vitamin D 25 Total 56.9 ng/mL (30-100)
== END 2022-08-17 03:16 | disposition home or self-care (01) ==
LOC: LBO 03:15
PROVIDERS: Absent Provider Nurse Practitioner Adult Health; PCP Nurse Practitioner Adult Health; Referring Provider Nurse Practitioner Adult Health; Visit Provider Nurse Practitioner Adult Health
DX: M80.80XD Other osteoporosis with current pathological fracture, unspecified site, subsequent encounter for fracture with routine healing (principal); Z51.81 Encounter for therapeutic drug level monitoring
CPT/HCPCS: 36415; 80048; 82306

== ENCOUNTER 2022-11-24 15:26 | Emergency (ER) | payer MEDICARE, SELFPAY ==
--- NOTE | 2022-11-24 15:30 | RT.EKG_ITS ---
APPROVED REPORT Exam: Resting ECG Reason for Exam: chest pain Patient Location: E HR:62 bpm ECG Measurements Heart Rate 62 AXIS OR 137 P -52 QRSd 93 QRS 35 QT 459 T 49 QTc 467 Conclusion Sinus or ectopic atrial rhythm...P axis (-45,135) Inferior infarct, old...Q >35mS, II III aVF Physician: no stemi
[2022-11-24 15:31] VITALS: BP 143/76; PULSE 66; RESP 18; TEMP 37.1; O2SAT 97
[2022-11-24 15:45] VITALS: RESP 17
--- NOTE | 2022-11-24 16:42 | W.ED.GENAD ---
Discharge Plan Disposition Patient Disposition: Home Discharge Details Clinical Impression: Headache, Malaise Primary Care Provider: Brina Faustin ED Provider: Jayda Billingsley Home Meds and New Rx's Prescriptions: New prochlorperazine maleate [Compazine] 5 mg tablet 5 mg PO BID PRNQty: 10 0RF Continued Clear Fiber 3 gram/4 gram powder 3 g PO DAILY loperamide [Imodium A-D] 2 mg capsule 2 mg PO .qT--Tue Patient Comments: Diarrhea cholecalciferol (vitamin D3) 125 mcg (5,000 unit) capsule 125 mcg PO BID losartan 25 mg tablet 25 mg PO DAILY Qty: 90 3RF Rx Instructions: Blood pressure memantine 10 mg tablet 10 mg PO QPM Qty: 30 5RF coenzyme Q10 10 mg capsule 10 mg PO DAILY Calmme Tablet PO atenolol 50 mg tablet See Rx Instructions .ROUTE .COMPLEX Qty: 90 3RF Dose Instruction: TAKE ONE TABLET BY MOUTH AT BEDTIME FOR BLOOD PRESSURE Rx Instructions: TAKE ONE TABLET BY MOUTH AT BEDTIME FOR BLOOD PRESSURE amlodipine 10 mg tablet See Rx Instructions .ROUTE .COMPLEX Qty: 90 3RF Dose Instruction: TAKE ONE TABLET BY MOUTH AT BEDTIME FOR BLOOD PRESSURE Rx Instructions: TAKE ONE TABLET BY MOUTH AT BEDTIME FOR BLOOD PRESSURE atorvastatin 40 mg tablet See Rx Instructions .ROUTE .COMPLEX Qty: 90 3RF Dose Instruction: TAKE ONE TABLET BY MOUTH EVERY EVENING FOR CHOLESTEROL, STROKE PREVENTION Rx Instructions: TAKE ONE TABLET BY MOUTH EVERY EVENING FOR CHOLESTEROL, STROKE PREVENTION clopidogrel 75 mg tablet See Rx Instructions .ROUTE .COMPLEX Qty: 90 3RF Dose Instruction: TAKE ONE TABLET BY MOUTH EVERY DAY Rx Instructions: TAKE ONE TABLET BY MOUTH EVERY DAY citalopram 10 mg tablet See Rx Instructions .ROUTE .COMPLEX Qty: 90 3RF Dose Instruction: TAKE ONE TABLET BY MOUTH EVERY DAY; TO REPLACE FLUOXETINE 05/19/2022 Rx Instructions: TAKE ONE TABLET BY MOUTH EVERY DAY; TO REPLACE FLUOXETINE 05/19/2022 famotidine 20 mg tablet 20 mg PO DAILY Qty: 90 3RF Hold Instructions: Home Medication placed on hold at Doctor's office Rx Instructions: Heartburn Discharge Instructions Instructions: General Headache (ED) Additional Instructions: Take the Compazine as needed for nausea and headache Keep yourself hydrated, at least eight 8 ounce glasses of water daily Return earlier should you develop new or worsening complaints Recommendation for recheck with your doctor tomorrow Referrals: Brina Faustin [employer] WELLNESS DIRECTOR [Primary Care Provider] - Medical Decision Making 77-year-old female presents with report of lightheadedness/dizziness, headache, diarrhea Denies any abdominal pain Secondary to age and comorbidities, CT head and neck with contrast were ordered, chest x-ray, diagnostic labs, EKG, troponin, EKG, labs, all within normal limits No evidence of acute abnormality, CTA of head and neck per radiology interpretation my review does not show evidence of stenosis or obvious disease Patient is feeling marked improvement after fluids and Compazine with Her headache is resolved and she is no longer feeling lightheaded or dizzy She is amatory steady gait, her vitals are stable, she is encouraged to call her doctor for follow-up I have low suspicion this is a TIA or CVA present, she is aware that she is not an MRI and should she continue symptoms an MRI might be indicated her symptoms have been present for 2 weeks and I think discharge home is reasonable at this time, she is on appropriate statin, Plavix, and aspirin regimen Return precautions reviewed as discussed in detail with patient and her daughter who was in the room for the entirety of this visit Medical Records Medical records reviewed: Yes I reviewed the patient's medical records. Lab Data Lab results reviewed: Yes I reviewed the patient's lab results. HPI General Date/Time Provider Initiated Documentation: 11/24/22 15:48. HPI Narrative: This 77-year-old female with history of mitral regurgitation, aortic stenosis, and memory loss, prior CVA, CKD, hypertension, hyperlipidemia, anxiety presents report of vague symptoms including dizziness intermittently for the past week, nausea, feeling tired. She states she had some intermittent chest pressure, has not had any episodes since yesterday reportedly. Denies any exertional component to symptoms. Denies any new medications or injuries. Denies any additional complaints at this time. Related Data Home Medications Medication Instructions Recorded Confirmed coenzyme Q10 10 mg capsule 10 mg PO DAILY 09/14/19 11/24/22 herbal drugs (Calmme tablet) tab PO 09/14/19 08/23/22 dextrin 3 gram/4 gram oral powder 3 g PO DAILY 09/19/20 11/24/22 (Clear Fiber) loperamide 2 mg capsule (Imodium 2 mg PO .qT-Th-Sat 09/19/20 11/24/22 A-D) atenolol 50 mg tablet See Rx Instructions .Route 02/05/22 11/24/22 .COMPLEX #90 tabs amlodipine 10 mg tablet See Rx Instructions .Route 03/17/22 11/24/22 .COMPLEX #90 tabs atorvastatin 40 mg tablet See Rx Instructions .Route 03/17/22 11/24/22 .COMPLEX #90 tabs losartan 25 mg tablet 25 mg PO DAILY #90 tabs 05/19/22 11/24/22 clopidogrel 75 mg tablet See Rx Instructions .Route 07/05/22 11/24/22 .COMPLEX #90 tabs memantine 10 mg tablet 10 mg PO QPM #30 tabs 07/27/22 11/24/22 cholecalciferol (vitamin D3) 125 125 mcg PO BID 08/23/22 11/24/22 mcg (5,000 unit) capsule citalopram 10 mg tablet See Rx Instructions .Route 10/22/22 11/24/22 .COMPLEX #90 tabs famotidine 20 mg tablet 20 mg PO DAILY #90 tabs 11/12/22 11/24/22 prochlorperazine maleate 5 mg 5 mg PO BID PRN #10 tabs 11/24/22 tablet (Compazine) Previous Rx's Medication Instructions Recorded atenolol 50 mg tablet See Rx Instructions .Route 02/05/22 .COMPLEX #90 tabs amlodipine 10 mg tablet See Rx Instructions .Route 03/17/22 .COMPLEX #90 tabs atorvastatin 40 mg tablet See Rx Instructions .Route 03/17/22 .COMPLEX #90 tabs losartan 25 mg tablet 25 mg PO DAILY #90 tabs 05/19/22 clopidogrel 75 mg tablet See Rx Instructions .Route 07/05/22 .COMPLEX #90 tabs memantine 10 mg tablet 10 mg PO QPM #30 tabs 07/27/22 citalopram 10 mg tablet See Rx Instructions .Route 10/22/22 .COMPLEX #90 tabs famotidine 20 mg tablet 20 mg PO DAILY #90 tabs 11/12/22 prochlorperazine maleate 5 mg 5 mg PO BID PRN #10 tabs 11/24/22 tablet (Compazine) Allergies Allergy/AdvReac Type Severity Reaction Status Date / Time codeine Allergy Verified 11/24/22 15:38 pentazocine [From Talwin] Allergy incoherent Verified 11/24/22 15:38 Sulfa (Sulfonamide Allergy Verified 11/24/22 15:38 Antibiotics) nortriptyline AdvReac Intermediate Elevated BP Verified 11/24/22 15:38 trazodone AdvReac Mild LE edema Verified 11/24/22 15:38 mannitol [From Reclast] AdvReac Severe Verified 11/24/22 15:38 bone pain sulfamethoxazole AdvReac Nausea Verified 11/24/22 15:38 [From Bactrim] trimethoprim [From Bactrim] AdvReac Nausea Verified 11/24/22 15:38 water for injection,sterile AdvReac Severe Verified 11/24/22 15:38 [From Reclast] bone pain zoledronic acid AdvReac Severe Verified 11/24/22 15:38 [From Reclast] bone pain/acute phase reaction General Stated Complaint: GenMedical JACINDA: 3 PFSH All Active Problems (Updated 11/24/22 @ 19:18 by GERTRUDE Esparza) Headache (Acute) Malaise (Acute) Mild mitral regurgitation (Acute ~12/2021) ECHO Vitamin D deficiency (Acute ~11/2021) Aortic stenosis, mild (Acute ~12/2021) ECHO Sensorineural hearing loss, bilateral (Acute) Osteoporosis (Chronic ~07/2021) h/o T8 compression fx + kyphosis on PE + height loss (2 inches) + abnormal DEXA = RECLAST 2021 Heartburn (Chronic) Pepcid RX Memory loss (Acute) Aphasia due to acute cerebrovascular accident (CVA) (Acute) Do not resuscitate (Chronic ~11/2019) DNR/DNI/DNH (unless comfort needs cannot be met at home); AD completed; COLST completed 11/19/2019 Impaired gait and mobility (Chronic) s/p CVA; uses Walker CKD (chronic kidney disease), stage III (Chronic) eGFR ~56 Migraine with aura, intractable, without status migrainosus (Chronic) Amitrip 10mg HS stopped migraines immediately (see 03/17/2020 OV note) but then she stopped 05/2020; Imitrex PRN + nightly Nortriptyline effective initially at 10mg with dose increase to 20mg causing elevated BPs so stopped and no worse for migraines Irritable bowel syndrome (Chronic) Diarrhea predominant--Imodium PRN Hyperlipidemia (Acute) Essential hypertension (Chronic) Generalized anxiety disorder (Chronic) L-T SSRI Cerebral infarction (Chronic ~01/2017) 01/2017 Medical History Abnormal brain MRI 04/02/2019 (performed for new headache) Generalized atrophy with focal encephalomalacia R frontal lobe Advanced care planning/counseling discussion Cardiac murmur ECHO 02/2020 mild aortic stenosis; repeat ECHO 1 year Compression fracture of T8 vertebra (~03/2021) Diarrhea Intermittent; +IBS & h/o colitis of sulfasalazine Diverticulitis large intestine w/o perforation or abscess w/o bleeding Fecal urgency Averaging weekly; Kefir, Imodium, Psyllium all help, but not resolves; Declines GI, stool studies, PT Grief reaction Friend Amador Hemiplegia following CVA (cerebrovascular accident) R History of abdominal pain NEG HIDA 12/04/2018--no gallbladder disease History of gastric ulcer NSAID related--on Famotidine & avoids NSAIDS (APAP instead) Homonymous hemianopsia s/p CVA; peripheral vision impairment; dose not drive Iliotibial band syndrome Insomnia Mild intermittent asthma Referral to colorectal surgeon declined by patient Right leg weakness Right lumbosacral radiculopathy Surgical History H/O section 1973, Dr. Christensen H/O: hysterectomy 1983. Dr. Christensen History of appendectomy History of back surgery --with fusion History of carpal tunnel release S/P excision of lipoma (09/30/10) right hand Status post excision of lipoma (09/30/10) Fibrolipoma cervical neck mass, Dr. Pelayo Family History Father Prostate cancer Diabetes Heart disease Hypertension Mother Heart disease Hypertension Social History Smoking/Tobacco Use Status: Never Smoking risk assessment performed?: Yes Alcohol Intake: current Alcohol Intake frequency: a few times a month Drug use: Never Substance use type: does not use Adopted: No Caregiver/Support person: No Foster care: No Household members: family Housing: house Number of Children: 2 number of grandchildren: 3 Communication Needs: Corrective Lenses Education Level: vocational Do you need help understanding health information?: Rarely current occupation: Retired Sexually active: No Do you think of yourself as: straight/heterosexual Current gender identity: female Other: 2 daughter; Gege Navarro, agent (daughter who lives nearby) What type of physical activity do you participate in: none Amalia/Restorationism: Zoroastrianism Special amalia needs: No Seatbelt use: always Working smoke detector in home: Yes Fire extinguisher in home: Yes Carbon monox detector in home: Yes Do you feel safe at home: Yes Do you feel safe in your relationship?: Yes Exam Const General: cooperative, comfortable and no acute distress HENMT Head: normal to inspection Eyes Pupils: PERRL EOM: nystagmus Resp Effort & Inspection: normal respiratory effort Auscultation: clear to auscultation bilaterally Cardio Rate: regular rate Rhythm: regular rhythm GI Inspection: normal to inspection Skin General skin exam: no rashes or lesions noted Neuro General: patient alert and patient oriented x3 Cranial Nerves: CN's II-XI intact bilaterally, tongue midline and nystagmus Cognition: normal cognition Speech: speech normal Gait: normal gait Sensory Exam: no sensory deficits noted Coordination: [id number] test normal Other: neg fnf, neg pronator drift, neg heel harris Extrem Other: distal pulses intact Course Vital Signs Vital signs: Vital Signs Temperature 37.1 C 11/24/22 15:31 Pulse 66 11/24/22 15:31 Respiratory Rate 18 11/24/22 15:31 Blood Pressure 143/76 H 11/24/22 15:31 Pulse Oximetry 97 11/24/22 15:31 Temperature 37.1 C 11/24/22 15:31 Temperature Source Oral 11/24/22 15:31 Pulse 66 11/24/22 15:31 Respiratory Rate 17 11/24/22 15:45 Respiratory Effort Normal 11/24/22 15:45 Respiratory Depth Normal 11/24/22 15:45 Respiratory Pattern Normal 11/24/22 15:45 Blood Pressure 143/76 H 11/24/22 15:31 Blood Pressure Position Sitting 11/24/22 15:31 Pulse Oximetry 97 11/24/22 15:31 Oxygen Delivery Method Room Air 11/24/22 15:31 Oxygen Flow Rate 0 11/24/22 15:31
[2022-11-24] MEDS: Prochlorperazine 10 MG/2 ML VIAL 2.5 MG IVP (16:43)
[2022-11-24] MEDS: Lactated Ringers 500 ML IV (16:45)
[2022-11-24 16:46] LABS: Abs Immature Grans 0.03 10^3/uL (0.0-0.06); Absolute Basophil Count 0.05 10^3/uL (0.0-0.2); Absolute Lymphocyte Count 2.15 10^3/uL (1.2-3.4); Absolute Monocyte Count 1.11 10^3/uL (0.1-0.8); Absolute Neutrophil Count 5.97 10^3/uL (1.2-6.7); Basophils % 0.5; Eosinophils % 5.1; HCT 39.8 % (36.0-46.0); HGB 13.6 g/dL (11.2-15.7); Immature Grans % 0.3; Lymphocytes % 21.9; MCH 31.6 pg (27.0-33.0); MCHC 34.2 % (32.0-36.0); MCV 93 fL (80-95); MPV 10.5 fL (8.0-11.0); Monocytes % 11.3; Neutrophils % 60.9; Platelet Count 181 10^3/uL (130-400); RDW 12.5 % (11.7-14.6); RDW-SD 42.4 fL; WBC 9.81 10^3/uL (4.4-10.8)
[2022-11-24 17:05] LABS: ALT 21 U/L (14-59); AST 13 U/L (15-37); Alkaline Phosphatase 72 U/L (46-116); Anion Gap 5.5 mmol/L (3-11); BUN 22 mg/dL (7-18); Bilirubin, Total 0.5 mg/dL (0.2-1.0); CO2 28.5 mmol/L (21.0-32.0); Calcium 9.6 mg/dL (8.5-10.1); Chloride 107 mmol/L (98-107); Estimated GFR 58.75 (mL/min/1.73m2); Glucose 121 mg/dL (74-106); Lipase 150 U/L (16-77); Magnesium 2.1 mg/dL (1.8-2.4); Potassium 3.9 mmol/L (3.5-5.1); Sodium 141 mmol/L (136-145); Total Protein 6.7 g/dL (6.4-8.2); Troponin I < 50 ng/L (<or=60)
--- NOTE | 2022-11-24 17:15 | DI.CT_ITS ---
Exam(s) CT BRAIN NECK CTA EXAM: CT BRAIN NECK CTA CLINICAL HISTORY: dizziness, neumann, hx of stroke. TECHNIQUE: Imaging Protocol: Axial CT angiography was performed with multi-slice acquisition and mu lti-planar and 3D reconstructions. CONTRAST MATERIAL: Intravenous: Omnipaque 350 Contrast volume:structured data in ml COMPARISON: CT CT HEAD WO from 05/06/2020 FINDINGS: CT Head W/O and W contrast: Ventricles and Extra axial spaces: Normal in size and morphology for the patient's age. Hemorrhage: None. Cerebral parenchyma: Stable small area of encephalomalacia in inferior right frontal lobe. No eviden ce of acute infarct. Midline shift: None. Brainstem/Cerebellum: Normal. Calvarium: Marked hyperostosis frontalis interna. Visualized Paranasal sinuses/Mastoids: Apparent prior surgery to inferior left mastoids with small am ount of fluid. Soft Tissues: Unremarkable. Enhancement: Normal. CTA Brain W: Internal Carotid Arteries: Petrous: Normal. Cavernous: Normal. Cerebral: Normal. Middle Cerebral Arteries: Right: No aneurysm, occlusion or significant stenosis. Left: No aneurysm, occlusion or significant stenosis. Anterior Cerebral Arteries: Right: No aneurysm, occlusion or significant stenosis. Left: No aneurysm, occlusion or significant stenosis. Posterior cerebral Arteries: Right: No aneurysm, occlusion or significant stenosis. Left: No aneurysm, occlusion or significant stenosis. Vertebral Arteries: Right: No aneurysm, occlusion or significant stenosis. Left: No aneurysm, occlusion. Multifocal moderate stenosis distal left vertebral artery.. Basilar Artery: No aneurysm, occlusion or significant stenosis. CTA Neck W: Common Carotid: Right: No dissection, occlusion or significant stenosis. Left: No dissection, occlusion or significant stenosis. External Carotid: Right: No dissection, occlusion or significant stenosis. Left: No dissection, occlusion or significant stenosis. Internal Carotid: Right: No dissection, occlusion or significant stenosis. Left: No dissection, occlusion or significant stenosis. Vertebral Artery: Right: No dissection, occlusion or significant stenosis. Left: No dissection, occlusion or significant stenosis. Lung Apices: Mild scarring right upper lobe. Bones: Degenerative changes of the cervical spine. No acute abnormality. Soft Tissues: Normal. IMPRESSION: 1. Normal CTA examination of the [place]. Multilevel, stenosis distal left vertebral artery . 2. 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 No acute infarct or hemorrhage. 3. Normal CTA examination of the neck. RADIATION DOSE DELIVERED: 1,982.53mGy.cm Total DLP DATA REPOSITORY: All CT scans at this facility are submitted to the National Radiology Data Registry (NRDR) Dose Index Registry (DIR) with the [employer] (ACR). RADIATION OPTIMIZATION: All CT scans at this facility use at least one of these dose optimization te chniques: automated exposure control; mA and/or kV adjustment per patient size (includes targeted exa ms where dose is matched to clinical indication); or iterative reconstruction.
[2022-11-24 17:23] LABS: Bilirubin Negative (Negative); Blood Negative (Negative); Clarity Clear (Clear); Glucose Negative (Negative); Ketones Negative (Negative); Leukocyte Esterase Negative (Negative); Nitrite Negative (Negative); Specific Gravity >= 1.030 (1.005-1.025); Urobilinogen 0.2 mg/dL (Up to 0.2)
--- NOTE | 2022-11-24 17:30 | DI.RAD_ITS ---
Exam(s) XR CHEST 2V PA LATERAL EXAM: XR CHEST 2V PA LATERAL CLINICAL HISTORY: dizzy TECHNIQUE: 2D digital imaging was performed. COMPARISON: CR XR RIBS LT W PA LAT CHEST from 03/18/2021 FINDINGS: HEART: Normal size. Aorta: Not dilated. Mitral annular calcifications. PULMONARY VASCULATURE: Normal. LUNGS: Linear scarring right upper lobe. Mild underlying interstitial changes PLEURAL SPACE: No pleural effusion or pneumothorax. BONE:Stable midthoracic compression fracture. IMPRESSION: No acute abnormality. DATA REPOSITORY: RADIATION DOSE DELIVERED:
[2022-11-24] MEDS: Omnipaque 350 MG/ML 100 ML BTL IJ (18:29)
[2022-11-24] MEDS: Normal Saline - Diluent 50 ML VIAL IJ (18:30)
--- NOTE | 2022-11-24 19:04 | DI.VRAD_ITS ---
PROCEDURE INFORMATION: Exam: CTA Head With Contrast, Arteriography Exam date and time: 11/24/2022 6:33 PM Age: 77 years old Clinical indication: Dizziness and giddiness and headache and other: HX of stroke; Patient HX: Dizziness, headache, HX of stroke TECHNIQUE: Imaging protocol: Computed tomographic angiography of the head with contrast. Exam focused on the arteries. 3D rendering (Not supervised by radiologist): MIP and/or 3D reconstructed images were created by the technologist. Contrast material: OMNIPAQUE 350; Contrast volume: 100 ml; Contrast route: INTRAVENOUS (IV); COMPARISON: CT HEAD WO 05/06/2020 12:16 PM FINDINGS: ANTERIOR CIRCULATION: Right internal carotid artery: Intracranial segment is patent with no significant stenosis. No aneurysm. Right middle cerebral artery: No occlusion or significant stenosis. No aneurysm. Right anterior cerebral artery: No occlusion or significant stenosis. No aneurysm. Left internal carotid artery: Intracranial segment is patent with no significant stenosis. No aneurysm. Left middle cerebral artery: No occlusion or significant stenosis. No aneurysm. Left anterior cerebral artery: No occlusion or significant stenosis. No aneurysm. POSTERIOR CIRCULATION: Right vertebral artery: No occlusion or significant stenosis. No aneurysm. Left vertebral artery: Multifocal moderate stenosis of left vertebral artery. Basilar artery: No occlusion or significant stenosis. No aneurysm. Right posterior cerebral artery: No occlusion or significant stenosis. No aneurysm. Left posterior cerebral artery: No occlusion or significant stenosis. No aneurysm. Brain: No definite mass, mass effect, or midline shift. Cerebral ventricles: No ventriculomegaly. Bones/joints: Unremarkable. No acute fracture. Soft tissues: Unremarkable. IMPRESSION: No significant stenosis or occlusion of intracranial arteries. PROCEDURE INFORMATION: Exam: CTA Neck With Contrast Exam date and time: 11/24/2022 6:33 PM Age: 77 years old Clinical indication: Dizziness and giddiness and headache and other: HX of stroke; Patient HX: Dizziness, headache, HX of stroke TECHNIQUE: Imaging protocol: Computed tomographic angiography of the neck with contrast. 3D rendering (Not supervised by radiologist): MIP and/or 3D reconstructed images were created by the technologist. Contrast material: OMNIPAQUE 350; Contrast volume: 100 ml; Contrast route: INTRAVENOUS (IV); COMPARISON: CR XR CERVICAL SPINE COMP 4-5V 03/18/2021 10:52 AM FINDINGS: Right common carotid artery: No stenosis. No dissection or occlusion. Right internal carotid artery: No stenosis of the extracranial segment. No dissection or occlusion. Right external carotid artery: No occlusion or stenosis of the origin. Left common carotid artery: No stenosis. No dissection or occlusion. Left internal carotid artery: No stenosis of the extracranial segment. No dissection or occlusion. Left external carotid artery: No occlusion or stenosis of the origin. Right vertebral artery: No stenosis. No dissection or occlusion. Left vertebral artery: No stenosis. No dissection or occlusion. Soft tissues: Normal. No significant soft tissue swelling. Bones/joints: No acute fracture. IMPRESSION: No stenosis or occlusion. REFERENCES: NASCET CRITERIA. The degree of stenosis in the cervical segment of the internal carotid artery is based on NASCET criteria. Normal is no stenosis. Mild is less than 50% stenosis. Moderate is 50-69% stenosis. Severe is 70% to 99% stenosis. Total occlusion is no detectable patent lumen. Dictated and Authenticated by: Ismael Alvarez MD. Ordering:LEA Montelongo MD
--- NOTE | 2022-11-24 19:06 | DI.VRAD_ITS ---
PROCEDURE INFORMATION: Exam: XR Chest Exam date and time: 11/24/2022 6:46 PM Age: 77 years old Clinical indication: Other: Dizzy TECHNIQUE: Imaging protocol: Radiologic exam of the chest. Views: 2 views. COMPARISON: CR XR RIBS LT W PA LAT CHEST 03/18/2021 10:47 AM FINDINGS: Lungs: Unremarkable. No consolidation. Pleural spaces: Unremarkable. No pleural effusion. No pneumothorax. Heart/Mediastinum: Unremarkable. No cardiomegaly. Bones/joints: Degenerative changes of the spine. IMPRESSION: No acute findings. Dictated and Authenticated by: Ismael Alvarez MD. Ordering:LEA Montelongo MD
[2022-11-24 19:07] VITALS: BP 145/84; PULSE 61; RESP 15; TEMP 36.9; O2SAT 97
== END 2022-11-24 19:56 | disposition home or self-care (01) ==
PROVIDERS: Emergency Provider Physician Assistant; PCP Nurse Practitioner Adult Health
DX: R51.9 Headache, unspecified (principal); R53.81 Other malaise; H55.00 Unspecified nystagmus; R19.7 Diarrhea, unspecified; R42 Dizziness and giddiness; I12.9 Hypertensive chronic kidney disease with stage 1 through stage 4 chronic kidney disease, or unspecified chronic kidney disease; N18.9 Chronic kidney disease, unspecified; J45.909 Unspecified asthma, uncomplicated; Z86.73 Personal history of transient ischemic attack (TIA), and cerebral infarction without residual deficits
CPT/HCPCS: 36415; 70496; 70498; 80053; 83690; 93005; 96361; 96374; 99285; 71046; 81003; 83735; 84484; 85025; 93010; J0780; J3490

== ENCOUNTER 2023-01-13 01:13 | Outpatient (CLI) | payer MEDICARE, SELFPAY ==
--- NOTE | 2023-01-13 06:56 | DI.US_ITS ---
Exam(s) US ABDOMEN LIMITED EXAM: US ABDOMEN LIMITED CLINICAL HISTORY: assess gallbladder,EPIGASTRIC PAIN, R10.13 TECHNIQUE: Ultrasound abdomen performed using standard protocol. COMPARISON: No exams were available for comparison FINDINGS: PANCREAS: Normal where visualized. LIVER: Normal. Hepatopedal flow in the Portal Vein. The liver measures in 12.2 cm length. GALLBLADDER: No evidence of cholelithiasis. No evidence of wall thickening. No pericholecystic fluid identified. BILIARY SYSTEM: Common bile duct measures < 7 mm. No intrahepatic biliary ductal dilation. MARY'S SIGN: Negative. RIGHT KIDNEY: Kidney is normal in size. No evidence of renal calculi. No evidence of hydronephrosis. No renal mass or cyst identified. ASCITES: None seen. IMPRESSION: Normal sonographic appearance of the upper abdomen. DATA REPOSITORY:
== END 2023-01-13 01:33 ==
LOC: DI 01:13
PROVIDERS: PCP Nurse Practitioner Adult Health; Visit Provider Nurse Practitioner Adult Health
DX: R10.13 Epigastric pain (principal)
CPT/HCPCS: 76705

== ENCOUNTER → 2023-03-09 13:21 | Outpatient (BNVA) | payer MEDICARE, SELFPAY | PROVIDERS: PCP Nurse Practitioner Adult Health; Referring Provider Nurse Practitioner Adult Health; Visit Provider Psychiatry & Neurology Neurology | DX: I69.318 Other symptoms and signs involving cognitive functions following cerebral infarction (principal); I69.320 Aphasia following cerebral infarction; Z79.02 Long term (current) use of antithrombotics/antiplatelets; I12.9 Hypertensive chronic kidney disease with stage 1 through stage 4 chronic kidney disease, or unspecified chronic kidney disease; N18.9 Chronic kidney disease, unspecified | CPT/HCPCS: 99214 ==

== ENCOUNTER 2024-05-22 02:22 | Outpatient (CLI) | payer MEDICARE, SELFPAY ==
[2024-05-22 08:49] LABS: Anion Gap 11.5 mmol/L (3-11); BUN 20 mg/dL (7-18); CO2 26.5 mmol/L (21.0-32.0); CREATININE 0.8 mg/dL (0.55-1.02); Calcium 9.7 mg/dL (8.5-10.1); Calculated LDL 45 mg/dL (<100); Chloride 107 mmol/L (98-107); Cholesterol 136 mg/dL (<200); Estimated GFR 76.31 (mL/min/1.73m2); Glucose 111 mg/dL (74-106); HDL Cholesterol 55 mg/dL (40-60); Potassium 3.5 mmol/L (3.5-5.1); Sodium 145 mmol/L (136-145); TSH (W/Ref FT4) 2.05 uIU/mL (0.36-3.74); Triglyceride 184 mg/dL (<150); Vitamin B12 1707 pg/mL (193-986)
== END 2024-05-22 02:23 | disposition home or self-care (01) ==
LOC: LBO 02:22
PROVIDERS: PCP Nurse Practitioner Adult Health; Referring Provider Nurse Practitioner Adult Health; Visit Provider Nurse Practitioner Adult Health
DX: I10 Essential (primary) hypertension (principal); F41.1 Generalized anxiety disorder; N18.30 Chronic kidney disease, stage 3 unspecified
CPT/HCPCS: 36415; 80048; 80061; 82607; 84443

== ENCOUNTER 2024-06-04 02:35 | Outpatient (CLI) | payer MEDICARE, SELFPAY ==
--- NOTE | 2024-06-04 08:00 | DI.RAD_ITS ---
Exam(s) XR HIP RT COMPLETE AP PELVIS EXAM: XR HIP RT COMPLETE AP PELVIS CLINICAL HISTORY: atraumatic RLE pain--r/o acute process; fx; OA, OSTEOPOROSIS. TECHNIQUE: 2D digital imaging was performed of the right hip. Two images were obtained. AP pelvis a nd lateral right hip views were obtained. COMPARISON: CT NECK AND CHEST WITH CONTRAST from 09/24/2010 CR XR LUMBAR SPINE COMPLETE from 03/18/2021 CR XR DEXA BONE DENSITY W/WO LALO from 07/16/2021 FINDINGS: BONES: No acute fracture is present. No bony destructive lesion is seen. Osteopenia. The lucency in the left iliac bone has a benign appearance and is unchanged. JOINTS: No dislocation present. There is mild joint space narrowing of the right hip. Mild joint spa ce narrowing and osteophytes are seen in the left hip. The sacroiliac joints are well maintained. SOFT TISSUE: Surgical clips are seen in the pelvis. L5-S1 spinal surgery is noted. IMPRESSION: 1. No acute fracture or dislocation. 2. Osteopenia. 3. Mild degenerative changes of the hips. DATA REPOSITORY: RADIATION DOSE DELIVERED:
--- NOTE | 2024-06-04 08:00 | DI.RAD_ITS ---
Exam(s) XR LUMBAR SPINE COMPLETE EXAM: XR LUMBAR SPINE COMPLETE CLINICAL HISTORY: atraumatic RLE pain--r/o acute process; fx; OA, OSTEOPOROSIS. TECHNIQUE: 2D digital imaging was performed of the lumbar spine. Five images were obtained. AP, la teral, right oblique, left oblique and L5-S1 spot views were obtained. COMPARISON: CR XR LUMBAR SPINE COMPLETE from 03/18/2021 FINDINGS: BONES: No fracture or destructive lesion. There are endplate osteophytes at multiple levels of the dayan mbar spine. Degenerative changes of the facets are seen in the upper lumbar spine. The bones are os teopenic. DISKS: There are vacuum discs at T12-L1 through L3-L4. There is also disc space narrowing at multipl e levels of the lumbar spine. Posterior spinal surgery is seen from L4 through S1. ALIGNMENT: There is a right convex curvature centered at the thoracolumbar spine. SOFT TISSUE: Vascular calcifications are present. IMPRESSION: 1. Moderate degenerative changes throughout the lumbar spine. 2. Postsurgical changes from L4 through S1. 3. Diffuse osteopenia. 4. No definite acute fracture or subluxation. DATA REPOSITORY: RADIATION DOSE DELIVERED:
--- NOTE | 2024-06-04 08:00 | DI.RAD_ITS ---
Exam(s) XR KNEE RT 4V AP,LAT,SHALONDA,PAT EXAM: XR KNEE RT 4V AP,LAT,SHALONDA,PAT CLINICAL HISTORY: atraumatic RLE pain--r/o acute process; fx; OA, OSTEOPOROSIS. TECHNIQUE: 2D digital imaging was performed of the right knee. Four views obtained. Merchant, AP, la teral and PA tunnel views were obtained. COMPARISON: There are no priors for comparison. FINDINGS: BONES: No acute fracture is present. No bony destructive lesion is seen. The bones are osteopenic. E nthesophytes are seen at the superior patella. JOINTS: There is chondrocalcinosis in the femoral tibial joint. Moderate joint space narrowing is se en at the patellofemoral joint. There osteophytes seen at the patellofemoral joint. There is a smal l joint effusion. SOFT TISSUE: Vascular calcifications are present. IMPRESSION: 1. Osteopenia. 2. [id number]-nptugrae degenerative changes of the right knee particularly at the patellofemoral joint. 3. Small joint effusion. DATA REPOSITORY: RADIATION DOSE DELIVERED:
== END 2024-06-04 02:55 ==
LOC: DI 02:36
PROVIDERS: PCP Nurse Practitioner Adult Health; Visit Provider Nurse Practitioner Adult Health
DX: M51.36 Other intervertebral disc degeneration, lumbar region (principal); Z98.890 Other specified postprocedural states; M81.0 Age-related osteoporosis without current pathological fracture
CPT/HCPCS: 72110; 73502; 73564

== ENCOUNTER → 2024-08-13 14:13 | Outpatient (BNVA) | payer MEDICARE, SELFPAY | PROVIDERS: PCP Nurse Practitioner Adult Health; Referring Provider Nurse Practitioner Adult Health; Visit Provider Student in an Organized Health Care Education/Training Program | DX: M17.11 Unilateral primary osteoarthritis, right knee (principal) | CPT/HCPCS: 20610; 99213; J1010 ==

== ENCOUNTER 2025-04-15 19:41 | Outpatient (REF) | payer MEDICARE, SELFPAY ==
[2025-04-15 19:19] LABS: Abs Immature Grans 0.01 10^3/uL (0.0-0.06); HCT 39.8 % (36.0-46.0); HGB 14.1 g/dL (11.2-15.7); Immature Grans % 0.1 %; MCH 31.5 pg (27.0-33.0); MCHC 35.4 % (32.0-36.0); MCV 89 fL (80-95); MPV 11.8 fL (8.0-11.0); Platelet Count 167 10^3/uL (130-400); RBC 4.47 10^6/uL (3.93-5.22); RDW 12.1 % (11.7-14.6); RDW-SD 39.2 fL; WBC 8.26 10^3/uL (4.4-10.8)
[2025-04-15 20:00] LABS: ALT 37 U/L (14-59); AST 23 U/L (15-37); Albumin 4.2 g/dL (3.4-5.0); Alkaline Phosphatase 117 U/L (46-116); Anion Gap 8.8 mmol/L (3-11); BUN 16 mg/dL (7-18); Bilirubin, Total 0.7 mg/dL (0.2-1.0); CO2 27.2 mmol/L (21.0-32.0); Calcium 9.7 mg/dL (8.5-10.1); Chloride 107 mmol/L (98-107); Cholesterol 172 mg/dL (<200); Estimated GFR 89.02 (mL/min/1.73m2); Folate 10.7 ng/mL (8.6-20.0); Glucose 106 mg/dL (74-106); HDL Cholesterol 42 mg/dL (>or=50); Magnesium 1.9 mg/dL (1.8-2.4); Potassium 3.6 mmol/L (3.5-5.1); Sodium 143 mmol/L (136-145); TSH (W/Ref FT4) 1.24 uIU/mL (0.36-3.74); Total Protein 6.8 g/dL (6.4-8.2); Triglyceride 409 mg/dL (<150); Vitamin B12 1079 pg/mL (193-986)
[2025-04-15 20:14] LABS: LDL CHOLESTEROL 83 mg/dL (<100)
== END 2025-04-15 19:42 | disposition home or self-care (01) ==
LOC: LBN 19:41
PROVIDERS: PCP Nurse Practitioner Adult Health; Visit Provider Nurse Practitioner Adult Health
DX: R41.3 Other amnesia (principal); Z13.6 Encounter for screening for cardiovascular disorders
CPT/HCPCS: 80053; 80061; 83721; 82607; 82746; 83735; 84443; 85025

== ENCOUNTER 2025-05-14 10:26 | Outpatient (CLI) | payer MEDICARE, SELFPAY ==
--- NOTE | 2025-05-14 06:45 | DI.MRI_ITS ---
Exam(s) MR BRAIN WO EXAM: MR BRAIN WO CLINICAL HISTORY: ? acute process,WORSENING HEADACHES,CHRONIC MAGALLON,H/O CVA,R51.9,Z86.73 TECHNIQUE: Multiplanar multisequence MRI of the brain was performed. COMPARISON: CT CT HEAD WO from 05/06/[address] BRAIN NECK CTA from 11/24/2022 FINDINGS: VENTRICLES AND EXTRA AXIAL SPACES: Normal in size and morphology for the patient's age. MIDLINE SHIFT: None. CEREBRAL PARENCHYMA: No focus of restricted diffusion to suggest acute infarct. No space-occupying lesion identified. There is again seen an area of encephalomalacia in the right frontal lobe. There are several areas of hyperintense signal in the white matter on the FLAIR and T2 weighted images most consistent with chronic microvascular ischemic disease. HEMORRHAGE: None. BRAINSTEM/CEREBELLUM: Normal. CALVARIUM: Normal. There is again seen hyperostosis frontalis interna. VISUALIZED PARANASAL SINUSES/MASTOIDS:There is some fluid seen in the left mastoid air cells. The visualized paranasal sinuses are clear. [place] OF PONCE: Normal flow void. PITUITARY GLAND: Unremarkable. OTHER FINDINGS: None. IMPRESSION: 1. There is no acute intracranial process. 2. Stable old right frontal encephalomalacia. 3. Nonspecific fluid seen in the left mastoid air cells. The visualized paranasal sinuses are clear. DATA REPOSITORY:
== END 2025-05-14 10:46 ==
LOC: DI 10:26
PROVIDERS: PCP Nurse Practitioner Adult Health; Visit Provider Nurse Practitioner Adult Health
DX: R51.9 Headache, unspecified (principal); Z86.73 Personal history of transient ischemic attack (TIA), and cerebral infarction without residual deficits
CPT/HCPCS: 70551